=== PATIENT | female | born 1965 ===

== ENCOUNTER 2018-07-09 00:30 | Inpatient (IN) | payer BC, OTHER ==
[2018-07-09 00:43] VITALS: RESP 20
[2018-07-09] MEDS ORDERED: Sodium Chloride 0.9% 1,000 ML IV ONE (00:45)
[2018-07-09 01:02] LABS: BASO # 0.1 K/uL (0.0-0.2); BASO % 0.7 % (0.0-2.0); EOS # 0.2 K/uL (0.0-0.7); EOS % 1.6 % (0.0-4.0); HEMOGLOBIN 12.8 g/dL (11.0-16.0); LYMPH # 5.1 K/uL (1.0-4.3); LYMPH % 47.7 % (20.0-40.0); MEAN CELL VOLUME 90.6 fL (81.0-99.0); MEAN CORPUSCULAR HEMOGLOBIN 30.5 pg (27.0-31.0); MEAN CORPUSCULAR HGB CONC 33.6 g/dL (33.0-37.0); MEAN PLATELET VOLUME 11.8 fL (7.2-11.7); MONO # 1.2 K/uL (0.0-0.8); MONO % 11.6 % (0.0-10.0); NEUT # 4.1 K/uL (1.8-7.0); NEUT % 38.4 % (50.0-75.0); NRBC % 0.1 % (0.0-2.0); RBC 4.2 Mil/uL (3.80-5.20); RED CELL DISTRIBUTION WIDTH 13.1 % (11.5-14.5); WHITE BLOOD COUNT 10.7 K/uL (4.8-10.8)
[2018-07-09 02:07] LABS: ALB/GLOB RATIO 1.4 (1.0-2.1); ALBUMIN 4.4 g/dL (3.5-5.0); ALT/SGPT 26 U/L (9-52); AST/SGOT 36 U/L (14-36); BLOOD UREA NITROGEN 15 mg/dL (7-17); GFR NON-AFRICAN AMERICAN > 60; LIPASE 149 U/L (23-300)
[2018-07-09 02:17] LABS: INR 1.1
[2018-07-09] MEDS ORDERED: Enoxaparin 40 mg Syringe SC STA (02:19)
--- NOTE | 2018-07-09 02:24 | C.PDOC ---
History Of Present Illness Patient presents to ED c/o dizziness described as room spinning around her since yesterday night, associated with nausea and vomiting. She states symptoms began after drinking a Monster energy drink. Patient denies chest pain, SOB, palpitations, abdominal pain, fever, cough, visual changes, facial droop, slurred speech, extremity weakness, sensory changes. Time Seen by Provider: 07/09/18 00:38 Chief Complaint (Nursing): GI Problem History Per: Patient History/Exam Limitations: no limitations Onset/Duration Of Symptoms: Days (2) Current Symptoms Are (Timing): Still Present Severity: Moderate Past Medical History Reviewed: Historical Data, Nursing Documentation, Vital Signs Vital Signs: Last Vital Signs Temp 97.9 F 07/09/18 00:37 Pulse 115 H 07/09/18 00:37 Resp 20 07/09/18 00:37 BP 166/91 H 07/09/18 00:37 Pulse Ox 98 07/09/18 00:37 - Medical History PMH: GERD Family History: States: No Known Family Hx - Social History Hx Tobacco Use: No Hx Alcohol Use: No Hx Substance Use: No - Immunization History Hx Tetanus Toxoid Vaccination: No Hx Influenza Vaccination: No Hx Pneumococcal Vaccination: No Review Of Systems Constitutional: Negative for: Fever, Chills Cardiovascular: Negative for: Chest Pain, Palpitations Respiratory: Negative for: Cough, Shortness of Breath Gastrointestinal: Positive for: Nausea, Vomiting. Negative for: Abdominal Pain Neurological: Positive for: Dizziness. Negative for: Weakness, Numbness, Headache Physical Exam - Physical Exam Appears: Well, Non-toxic, In Acute Distress (uncomfortable appearing, (+) vomiting) Head: Normacephalic Eye(s): bilateral: PERRL, EOMI, Other (mild horizontal nystagmus) Oral Mucosa: Moist Cardiovascular: Rhythm Irregular (irregularly irregular, tachycardic) Respiratory: Normal Breath Sounds, No Rales, No Rhonchi, No Wheezing Gastrointestinal/Abdominal: Normal Exam, Bowel Sounds, Soft, No Tenderness Extremity: Normal ROM, No Pedal Edema, No Calf Tenderness Neurological/Psych: Oriented x3, Normal Speech, Normal Cognition, Normal Cranial Nerves, No Cerebellar Signs, Normal Motor, Normal Sensation ED Course And Treatment - Laboratory Results Result Diagrams: 07/09/18 00:50 07/09/18 01:53 Lab Results: PT 12.0 SECONDS (9.7-12.2) 07/09/18 02:04 INR 1.1 07/09/18 02:04 APTT 33 SECONDS (21-34) 07/09/18 02:04 Troponin I < 0.0120 ng/mL (0.00-0.120) 07/09/18 01:30 Total Bilirubin 0.3 mg/dL (0.2-1.3) 07/09/18 01:53 AST 36 U/L (14-36) 07/09/18 01:53 ALT 26 U/L (9-52) 07/09/18 01:53 Alkaline Phosphatase 104 U/L (38-126) 07/09/18 01:53 Total Protein 7.5 g/dL (6.3-8.3) 07/09/18 01:53 Albumin 4.4 g/dL (3.5-5.0) 07/09/18 01:53 Globulin 3.1 gm/dL (2.2-3.9) 07/09/18 01:53 Albumin/Globulin Ratio 1.4 (1.0-2.1) 07/09/18 01:53 Lipase 149 U/L (23-300) 07/09/18 01:53 ECG: Interpreted By Me, Viewed By Me (atrial fibrillation 80 bpm, left axis deviation, no acute ST changes) ECG Interpretation: Abnormal O2 Sat by Pulse Oximetry: 98 (RA) Pulse Ox Interpretation: Normal Progress Note: Blood work, EKG, UA, UDS ordered and reviewed. Patient given IV Ns bolus, IV zofran and PO Meclizine. EKG shows new onset atrial fibrillation - SC Lovenox given. Disposition - Disposition Forms: [employer] (Maltese)
[2018-07-09] MEDS ORDERED: Enoxaparin 80 mg Syringe ONE (02:25)
[2018-07-09] MEDS ORDERED: Potassium Chloride 20 mEq ER Tab PO STA (02:39)
[2018-07-09] MEDS ORDERED: Potassium Chloride 20 mEq ER Tab PO ONE (02:55)
--- NOTE | 2018-07-09 03:03 | CP.PCM.HP ---
<LornaSang - Last Filed: 07/09/18 04:51> History of Present Illness - History of Present Illness History of Present Illness: PGY-1 History and Physical [address] Mcneil Patient is a 52 year old female with past medical history of GERD presenting to ED with dizziness since yesterday evening with associated nausea/vomiting. Patient describes dizziness as sensation of room spinning around her. She states the symptoms began after drinking one Monster energy drink. No fevers/chills, headaches, chest pain, palpitations, sob, cough, abdominal pain, diarrhea/constipation, dysuria, or changes in stool. PMHx: GERD PSHx: ovarian cyst removal Allergies: NKDA Home Medications: None Social Hx: denies alcohol, tobacco, illicit drug use Family Hx: unknown PMD: None Present on Admission - Present on Admission Any Indicators Present on Admission: No Review of Systems - Review of Systems All systems: reviewed and no additional remarkable complaints except Review of Systems: as per HPI Past Patient History - Infectious Disease Hx of Infectious Diseases: None - Past Social History Smoking Status: Never Smoked - GASTROINTESTINAL Hx Gastroesophageal Reflux: Yes - PSYCHIATRIC Hx Substance Use: No - SURGICAL HISTORY Hx Surgeries: Yes Other/Comment: OVARIAN CYST REMOVAL - ANESTHESIA Hx Anesthesia: Yes Meds Allergies/Adverse Reactions: Allergies Allergy/AdvReac Type Severity Reaction Status Date / Time DUST Allergy Mild Uncoded 07/09/18 00:43 POLLEN Allergy Mild Uncoded 07/09/18 00:43 Physical Exam - Constitutional Appears: Non-toxic, In Acute Distress - Head Exam Head Exam: ATRAUMATIC, NORMAL INSPECTION, NORMOCEPHALIC - Eye Exam Eye Exam: EOMI, Normal appearance, PERRL Pupil Exam: NORMAL ACCOMODATION - ENT Exam ENT Exam: Mucous Membranes Dry, Normal Exam - Neck Exam Neck exam: Positive for: Full Rom, Normal Inspection. Negative for: Tenderness - Respiratory Exam Respiratory Exam: Clear to Auscultation Bilateral, NORMAL BREATHING PATTERN. absent: Accessory Muscle Use, Rales, Rhonchi, Wheezes, Respiratory Distress, Stridor - Cardiovascular Exam Cardiovascular Exam: Tachycardia, Irregular Rhythm, +S1, +S2 - GI/Abdominal Exam GI & Abdominal Exam: Normal Bowel Sounds, Soft. absent: Distended, Firm, G uarding, Rebound, Rigid, Tenderness - Extremities Exam Extremities exam: Positive for: normal capillary refill, normal inspection, pedal pulses present. Negative for: calf tenderness, pedal edema - Back Exam Back exam: NORMAL INSPECTION. absent: CVA tenderness (L), CVA tenderness (R) - Neurological Exam Neurological exam: Alert, CN II-XII Intact, Oriented x3 - Skin Skin Exam: Dry, Intact, Normal Color, Warm Results - Vital Signs Recent Vital Signs: Last Vital Signs Temp 97.9 F 07/09/18 00:37 Pulse 115 H 07/09/18 00:37 Resp 20 07/09/18 00:37 BP 166/91 H 07/09/18 00:37 Pulse Ox 98 07/09/18 02:27 - Labs Result Diagrams: 07/09/18 00:50 07/09/18 01:53 Labs: Laboratory Results - last 24 hr 07/09/18 07/09/18 07/09/18 00:50 00:54 01:30 WBC 10.7 D RBC 4.20 Hgb 12.8 Hct 38.0 MCV 90.6 MCH 30.5 MCHC 33.6 RDW 13.1 Plt Count 162 MPV 11.8 H Neut % (Auto) 38.4 L Lymph % (Auto) 47.7 H [place] % (Auto) 11.6 H Eos % (Auto) 1.6 Baso % (Auto) 0.7 Neut # (Auto) 4.1 Lymph # (Auto) 5.1 H [place] # (Auto) 1.2 H Eos # (Auto) 0.2 Baso # (Auto) 0.1 PT INR APTT Sodium Potassium Chloride Carbon Dioxide Anion Gap BUN Creatinine Est GFR ( Amer) Est GFR (Non-Af Amer) POC Glucose (mg/dL) 129 H Random Glucose Calcium Total Bilirubin AST ALT Alkaline Phosphatase Troponin I < 0.0120 Total Protein Albumin Globulin Albumin/Globulin Ratio Lipase Alcohol, Quantitative < 10 07/09/18 07/09/18 01:53 02:04 WBC RBC Hgb Hct MCV MCH MCHC RDW Plt Count MPV Neut % (Auto) Lymph % (Auto) [place] % (Auto) Eos % (Auto) Baso % (Auto) Neut # (Auto) Lymph # (Auto) [place] # (Auto) Eos # (Auto) Baso # (Auto) PT 12.0 INR 1.1 APTT 33 Sodium 138 Potassium 3.3 L Chloride 102 Carbon Dioxide 30 Anion Gap 9 L BUN 15 Creatinine 0.6 L Est GFR ( Amer) > 60 Est GFR (Non-Af Amer) > 60 POC Glucose (mg/dL) Random Glucose 129 H D Calcium 9.0 Total Bilirubin 0.3 AST 36 ALT 26 Alkaline Phosphatase 104 Troponin I Total Protein 7.5 Albumin 4.4 Globulin 3.1 Albumin/Globulin Ratio 1.4 Lipase 149 Alcohol, Quantitative Assessment & Plan - Assessment and Plan (Free Text) Assessment: 52 year old female with pmhx of GERD presenting to ED with acute onset dizziness with associated nausea/vomiting since yesterday evening. EKG findings suggest new onset atrial fibrillation. Plan: New onset atrial fibrillation -UDS, alcohol serum negative -s/p lovenox 60 mg SC in ED -CXR: no acute findings; f/u official read -EKG 1: atrial fibrillation @ 95 bpm -EKG 2: atrial fibrillation @ 80 bpm -EKG 3: NSR @ 87 bpm -telemetry monitoring -ECHO in am -CHADS-VASc score: 1 -ASA 81 mg PO daily -conservative monitoring Dizziness, likely 2/2 benign positional vertigo -s/p NS bolus x1, zofran x1, meclizine x1 in ED -zofran 4 mg PO q4 prn for nausea -meclizine 12.5 mg PO BID prn for dizziness Hypokalemia -K 3.3 on admission -likely 2/2 vomiting -Kdur 20 mEq given in ED -continue to monitor, replete as necessary GERD -protonix 40 mg IVP daily -Maalox 30 ml PO q6 prn PPx, Diet, Disposition -DVT ppx: scds -GI ppx: protonix -Diet: HHD Case discussed with Dr. Ewa Rothman DO, PGY-1 <Yamil Mcneil P - Last Filed: 07/09/18 08:14> Results - Vital Signs Recent Vital Signs: Last Vital Signs Temp 98.4 F 07/09/18 07:20 Pulse 94 H 07/09/18 07:20 Resp 20 07/09/18 07:20 BP 126/78 07/09/18 07:20 Pulse Ox 98 07/09/18 07:20 - Labs Result Diagrams: 07/09/18 00:50 07/09/18 01:53 Labs: Laboratory Results - last 24 hr 07/09/18 07/09/18 07/09/18 00:50 00:54 01:30 WBC 10.7 D RBC 4.20 Hgb 12.8 Hct 38.0 MCV 90.6 MCH 30.5 MCHC 33.6 RDW 13.1 Plt Count 162 MPV 11.8 H Neut % (Auto) 38.4 L Lymph % (Auto) 47.7 H [place] % (Auto) 11.6 H Eos % (Auto) 1.6 Baso % (Auto) 0.7 Neut # (Auto) 4.1 Lymph # (Auto) 5.1 H [place] # (Auto) 1.2 H Eos # (Auto) 0.2 Baso # (Auto) 0.1 PT INR APTT Sodium Potassium Chloride Carbon Dioxide Anion Gap BUN Creatinine Est GFR ( Amer) Est GFR (Non-Af Amer) POC Glucose (mg/dL) 129 H Random Glucose Calcium Total Bilirubin AST ALT Alkaline Phosphatase Troponin I < 0.0120 Total Protein Albumin Globulin Albumin/Globulin Ratio Lipase Urine Color Urine Clarity Urine pH Ur Specific [place] Urine Protein Urine Glucose (UA) Urine Ketones Urine Blood Urine Nitrate Urine Bilirubin Urine Urobilinogen Ur Leukocyte Esterase Urine WBC (Auto) Urine Bacteria Urine HCG, Qual Urine Opiates Screen Urine Methadone Screen Ur Barbiturates Screen Ur Phencyclidine Scrn Ur Amphetamines Screen U Benzodiazepines Scrn U Oth Cocaine Metabols U Cannabinoids Screen Alcohol, Quantitative < 10 07/09/18 07/09/18 07/09/18 01:53 02:04 03:04 WBC RBC Hgb Hct MCV MCH MCHC RDW Plt Count MPV Neut % (Auto) Lymph % (Auto) [place] % (Auto) Eos % (Auto) Baso % (Auto) Neut # (Auto) Lymph # (Auto) [place] # (Auto) Eos # (Auto) Baso # (Auto) PT 12.0 INR 1.1 APTT 33 Sodium 138 Potassium 3.3 L Chloride 102 Carbon Dioxide 30 Anion Gap 9 L BUN 15 Creatinine 0.6 L Est GFR ( Amer) > 60 Est GFR (Non-Af Amer) > 60 POC Glucose (mg/dL) Random Glucose 129 H D Calcium 9.0 Total Bilirubin 0.3 AST 36 ALT 26 Alkaline Phosphatase 104 Troponin I Total Protein 7.5 Albumin 4.4 Globulin 3.1 Albumin/Globulin Ratio 1.4 Lipase 149 Urine Color Colorless Urine Clarity Clear Urine pH 8.0 Ur Specific [place] 1.006 Urine Protein Negative Urine Glucose (UA) Normal Urine Ketones Negative Urine Blood Negative Urine Nitrate Negative Urine Bilirubin Negative Urine Urobilinogen Normal Ur Leukocyte Esterase Neg Urine WBC (Auto) 1 Urine Bacteria Rare Urine HCG, Qual Urine Opiates Screen Urine Methadone Screen Ur Barbiturates Screen Ur Phencyclidine Scrn Ur Amphetamines Screen U Benzodiazepines Scrn U Oth Cocaine Metabols U Cannabinoids Screen Alcohol, Quantitative 07/09/18 07/09/18 03:04 03:04 WBC RBC Hgb Hct MCV MCH MCHC RDW Plt Count MPV Neut % (Auto) Lymph % (Auto) [place] % (Auto) Eos % (Auto) Baso % (Auto) Neut # (Auto) Lymph # (Auto) [place] # (Auto) Eos # (Auto) Baso # (Auto) PT INR APTT Sodium Potassium Chloride Carbon Dioxide Anion Gap BUN Creatinine Est GFR ( Amer) Est GFR (Non-Af Amer) POC Glucose (mg/dL) Random Glucose Calcium Total Bilirubin AST ALT Alkaline Phosphatase Troponin I Total Protein Albumin Globulin Albumin/Globulin Ratio Lipase Urine Color Urine Clarity Urine pH Ur Specific [place] Urine Protein Urine Glucose (UA) Urine Ketones Urine Blood Urine Nitrate Urine Bilirubin Urine Urobilinogen Ur Leukocyte Esterase Urine WBC (Auto) Urine Bacteria Urine HCG, Qual Negative Urine Opiates Screen Negative Urine Methadone Screen Negative Ur Barbiturates Screen Negative Ur Phencyclidine Scrn Negative Ur Amphetamines Screen Negative U Benzodiazepines Scrn Negative U Oth Cocaine Metabols Negative U Cannabinoids Screen Negative Alcohol, Quantitative Attending/Attestation - Attestation I have personally seen and examined this patient.: Yes I have fully participated in the care of the patient.: Yes I have reviewed all pertinent clinical information: Yes Notes (Text): 07/09/18 08:08 Assessment Vertigo clinically BPV, no other neuro deficit on clinical exam New observed afib converted to sinus ? PAF as patient gives prior history of palpitations with energy drinks Plan PRN meclinizine, zofran, counselled about bpv Echo, likely would be candidate for ASA Counselled and to cautious about caffeine and energy drinks Gi/dvt prophylaxis See orders for detail.
[2018-07-09 03:17] LABS: URINE BACTERIA RARE (<OCC); URINE BILIRUBIN NEGATIVE (NEGATIVE); URINE BLOOD NEGATIVE (NEGATIVE); URINE CLARITY Clear (Clear); URINE COLOR Colorless (YELLOW); URINE GLUCOSE (UA) NORMAL (Normal); URINE LEUKOCYTE ESTERASE NEG Leu/uL (Negative); URINE PROTEIN NEGATIVE (NEGATIVE); URINE UROBILINOGEN NORMAL mg/dL (0.2-1.0)
[2018-07-09 03:26] LABS: BARBITURATES, UR NEGATIVE (NEGATIVE); BENZODIAZEPINES, UR NEGATIVE (NEGATIVE); OPIATES, UR NEGATIVE (NEGATIVE); PHENCYCLIDINE, UR NEGATIVE (NEGATIVE)
[2018-07-09] MEDS: Aluminum Hydroxide/Magnesium Hydroxide Susp (30 mL) PO PRN (05:07)
--- NOTE | 2018-07-09 09:32 | CP.PCM.CON ---
<Mercedez Hawkins - Last Filed: 07/09/18 18:51> History of Present Illness - History of Present Illness History of Present Illness: Cardiology Consult Note for Dr. Patel: 52 year old female with past medical history of GERD presented to the ER for dizziness. Cardiology has been consulted for new onset atrial fibrillation. Patient states she has been having palpitations for the past 2 years off and on. She states they occur every time she has an energy drink (for which she had a Monster energy drink yesterday). The palpitations will last for about 1-2 hours and she usually does not pay attention to them. She states what prompted to come to the ER overnight was that she could barely standup she felt extremely dizzy. She states the room felt like it was spinning. She also complains of nausea when she has dizziness. She denies chest pain, shortness of breath, fever, chills, diarrhea or constipation. PMD: Dr. 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 absent: Chest Pain, Dyspnea, Leg Edema - Respiratory Respiratory: absent: Cough, Dyspnea - Gastrointestinal Gastrointestinal: Nausea. absent: Vomiting - Genitourinary Genitourinary: absent: Dysuria - Neurological Neurological: Dizziness Past Patient History - Infectious Disease Hx of Infectious Diseases: None - Past Medical History & Family History Past Medical History?: Yes - Past Social History Smoking Status: Never Smoked - MUSCULOSKELETAL/RHEUMATOLOGICAL Hx Falls: No - GASTROINTESTINAL Hx Gastroesophageal Reflux: Yes - PSYCHIATRIC Hx Substance Use: No - SURGICAL HISTORY Hx Surgeries: Yes Other/Comment: OVARIAN CYST REMOVAL - ANESTHESIA Hx Anesthesia: Yes Hx Anesthesia Reactions: No Hx Malignant Hyperthermia: No Has any member of the family had a problem w/ anesthesia?: No Meds Allergies/Adverse Reactions: Allergies Allergy/AdvReac Type Severity Reaction Status Date / Time DUST Allergy Mild Uncoded 07/09/18 00:43 POLLEN Allergy Mild Uncoded 07/09/18 00:43 - Medications Medications: Current Medications Al Hydrox/Mg Hydrox/Simethicone (Maalox 30 Ml) 30 ml PO Q6 PRN PRN Reason: Indigestion / Heartburn Last Admin: 07/09/18 05:07 Dose: 30 ml Aspirin (Aspirin Chewable) 81 mg PO DAILY [facility] Influenza Virus Vaccine (Flucelvax Quad [id number] Syr) 60 mcg IM .ONCE ONE Stop: 07/11/18 10:01 Meclizine HCl (Antivert) 12.5 mg PO BID PRN PRN Reason: Dizziness Ondansetron HCl (Zofran Inj) 4 mg IVP Q6 PRN PRN Reason: nausea Pantoprazole Sodium (Protonix Inj) 40 mg IVP DAILY [facility] Pneumococcal Polyvalent Vaccine (Pneumovax 23 Vaccine) 0.5 ml IM .ONCE ONE Stop: 07/11/18 10:01 Physical Exam - Constitutional Appears: No Acute Distress - Head Exam Head Exam: ATRAUMATIC, NORMAL INSPECTION - Eye Exam Eye Exam: EOMI, Normal appearance - ENT Exam ENT Exam: Mucous Membranes Moist - Respiratory Exam Respiratory Exam: Clear to Auscultation Bilateral, NORMAL BREATHING PATTERN - Cardiovascular Exam Cardiovascular Exam: REGULAR RHYTHM, +S1, +S2 - GI/Abdominal Exam GI & Abdominal Exam: Normal Bowel Sounds, Soft. absent: Tenderness - Extremities Exam Extremities exam: Positive for: normal inspection - Neurological Exam Neurological exam: Alert, Oriented x3 - Psychiatric Exam Psychiatric exam: Depressed - Skin Skin Exam: Normal Color Results - Vital Signs Recent Vital Signs: Last Vital Signs Temp 98.4 F 07/09/18 07:20 Pulse 94 H 07/09/18 07:20 Resp 20 07/09/18 07:20 BP 126/78 07/09/18 07:20 Pulse Ox 98 07/09/18 07:20 - Labs Result Diagrams: 07/09/18 00:50 07/09/18 01:53 Labs: Laboratory Results - last 24 hr 07/09/18 07/09/18 07/09/18 00:50 00:54 01:30 WBC 10.7 D RBC 4.20 Hgb 12.8 Hct 38.0 MCV 90.6 MCH 30.5 MCHC 33.6 RDW 13.1 Plt Count 162 MPV 11.8 H Neut % (Auto) 38.4 L Lymph % (Auto) 47.7 H [place] % (Auto) 11.6 H Eos % (Auto) 1.6 Baso % (Auto) 0.7 Neut # (Auto) 4.1 Lymph # (Auto) 5.1 H [place] # (Auto) 1.2 H Eos # (Auto) 0.2 Baso # (Auto) 0.1 PT INR APTT Sodium Potassium Chloride Carbon Dioxide Anion Gap BUN Creatinine Est GFR ( Amer) Est GFR (Non-Af Amer) POC Glucose (mg/dL) 129 H Random Glucose Calcium Total Bilirubin AST ALT Alkaline Phosphatase Troponin I < 0.0120 Total Protein Albumin Globulin Albumin/Globulin Ratio Lipase Urine Color Urine Clarity Urine pH Ur Specific [place] Urine Protein Urine Glucose (UA) Urine Ketones Urine Blood Urine Nitrate Urine Bilirubin Urine Urobilinogen Ur Leukocyte Esterase Urine WBC (Auto) Urine Bacteria Urine HCG, Qual Urine Opiates Screen Urine Methadone Screen Ur Barbiturates Screen Ur Phencyclidine Scrn Ur Amphetamines Screen U Benzodiazepines Scrn U Oth Cocaine Metabols U Cannabinoids Screen Alcohol, Quantitative < 10 07/09/18 07/09/18 07/09/18 01:53 02:04 03:04 WBC RBC Hgb Hct MCV MCH MCHC RDW Plt Count MPV Neut % (Auto) Lymph % (Auto) [place] % (Auto) Eos % (Auto) Baso % (Auto) Neut # (Auto) Lymph # (Auto) [place] # (Auto) Eos # (Auto) Baso # (Auto) PT 12.0 INR 1.1 APTT 33 Sodium 138 Potassium 3.3 L Chloride 102 Carbon Dioxide 30 Anion Gap 9 L BUN 15 Creatinine 0.6 L Est GFR ( Amer) > 60 Est GFR (Non-Af Amer) > 60 POC Glucose (mg/dL) Random Glucose 129 H D Calcium 9.0 Total Bilirubin 0.3 AST 36 ALT 26 Alkaline Phosphatase 104 Troponin I Total Protein 7.5 Albumin 4.4 Globulin 3.1 Albumin/Globulin Ratio 1.4 Lipase 149 Urine Color Colorless Urine Clarity Clear Urine pH 8.0 Ur Specific [place] 1.006 Urine Protein Negative Urine Glucose (UA) Normal Urine Ketones Negative Urine Blood Negative Urine Nitrate Negative Urine Bilirubin Negative Urine Urobilinogen Normal Ur Leukocyte Esterase Neg Urine WBC (Auto) 1 Urine Bacteria Rare Urine HCG, Qual Urine Opiates Screen Urine Methadone Screen Ur Barbiturates Screen Ur Phencyclidine Scrn Ur Amphetamines Screen U Benzodiazepines Scrn U Oth Cocaine Metabols U Cannabinoids Screen Alcohol, Quantitative 07/09/18 07/09/18 03:04 03:04 WBC RBC Hgb Hct MCV MCH MCHC RDW Plt Count MPV Neut % (Auto) Lymph % (Auto) [place] % (Auto) Eos % (Auto) Baso % (Auto) Neut # (Auto) Lymph # (Auto) [place] # (Auto) Eos # (Auto) Baso # (Auto) PT INR APTT Sodium Potassium Chloride Carbon Dioxide Anion Gap BUN Creatinine Est GFR ( Amer) Est GFR (Non-Af Amer) POC Glucose (mg/dL) Random Glucose Calcium Total Bilirubin AST ALT Alkaline Phosphatase Troponin I Total Protein Albumin Globulin Albumin/Globulin Ratio Lipase Urine Color Urine Clarity Urine pH Ur Specific [place] Urine Protein Urine Glucose (UA) Urine Ketones Urine Blood Urine Nitrate Urine Bilirubin Urine Urobilinogen Ur Leukocyte Esterase Urine WBC (Auto) Urine Bacteria Urine HCG, Qual Negative Urine Opiates Screen Negative Urine Methadone Screen Negative Ur Barbiturates Screen Negative Ur Phencyclidine Scrn Negative Ur Amphetamines Screen Negative U Benzodiazepines Scrn Negative U Oth Cocaine Metabols Negative U Cannabinoids Screen Negative Alcohol, Quantitative Assessment & Plan - Assessment and Plan (Free Text) Assessment: 52 year old female with past medical history of GERD presented to the ER for dizziness. New onset atrial fibrillation - resolved possibly secondary to consumption of energy drinks CHADS-VASc score: 1 - UDS and Alcohol: Negative - EKG: afib; (previous EKG 12/12/15 showed NSR); Second EKG: NSR - f/u ECHO - f/u TSH and free T4 Case discussed with Dr. Jorge Hawkins PGY-2 <Herman Patel - Last Filed: 07/09/18 22:35> Meds - Medications Medications: Current Medications Al Hydrox/Mg Hydrox/Simethicone (Maalox 30 Ml) 30 ml PO Q6 PRN PRN Reason: Indigestion / Heartburn Last Admin: 07/09/18 05:07 Dose: 30 ml Aspirin (Aspirin Chewable) 81 mg PO DAILY [facility] Last Admin: 07/09/18 11:40 Dose: 81 mg Influenza Virus Vaccine (Flucelvax Quad [id number] Syr) 60 mcg IM .ONCE ONE Stop: 07/11/18 10:01 Meclizine HCl (Antivert) 12.5 mg PO BID PRN PRN Reason: Dizziness Ondansetron HCl (Zofran Inj) 4 mg IVP Q6 PRN PRN Reason: nausea Pantoprazole Sodium (Protonix Inj) 40 mg IVP DAILY [facility] Last Admin: 07/09/18 11:41 Dose: 40 mg Pneumococcal Polyvalent Vaccine (Pneumovax 23 Vaccine) 0.5 ml IM .ONCE ONE Stop: 07/11/18 10:01 Results - Vital Signs Recent Vital Signs: Last Vital Signs Temp 99.5 F 07/09/18 15:00 Pulse 101 H 07/09/18 15:00 Resp 20 07/09/18 15:00 BP 114/67 07/09/18 15:00 Pulse Ox 98 07/09/18 15:00 - Labs Result Diagrams: 07/09/18 00:50 07/09/18 01:53 Labs: Laboratory Results - last 24 hr 07/09/18 07/09/18 07/09/18 00:50 00:54 01:30 WBC 10.7 D RBC 4.20 Hgb 12.8 Hct 38.0 MCV 90.6 MCH 30.5 MCHC 33.6 RDW 13.1 Plt Count 162 MPV 11.8 H Neut % (Auto) 38.4 L Lymph % (Auto) 47.7 H [place] % (Auto) 11.6 H Eos % (Auto) 1.6 Baso % (Auto) 0.7 Neut # (Auto) 4.1 Lymph # (Auto) 5.1 H [place] # (Auto) 1.2 H Eos # (Auto) 0.2 Baso # (Auto) 0.1 PT INR APTT Sodium Potassium Chloride Carbon Dioxide Anion Gap BUN Creatinine Est GFR ( Amer) Est GFR (Non-Af Amer) POC Glucose (mg/dL) 129 H Random Glucose Calcium Total Bilirubin AST ALT Alkaline Phosphatase Troponin I < 0.0120 Total Protein Albumin Globulin Albumin/Globulin Ratio Lipase Urine Color Urine Clarity Urine pH Ur Specific [place] Urine Protein Urine Glucose (UA) Urine Ketones Urine Blood Urine Nitrate Urine Bilirubin Urine Urobilinogen Ur Leukocyte Esterase Urine WBC (Auto) Urine Bacteria Urine HCG, Qual Urine Opiates Screen Urine Methadone Screen Ur Barbiturates Screen Ur Phencyclidine Scrn Ur Amphetamines Screen U Benzodiazepines Scrn U Oth Cocaine Metabols U Cannabinoids Screen Alcohol, Quantitative < 10 07/09/18 07/09/18 07/09/18 01:53 02:04 03:04 WBC RBC Hgb Hct MCV MCH MCHC RDW Plt Count MPV Neut % (Auto) Lymph % (Auto) [place] % (Auto) Eos % (Auto) Baso % (Auto) Neut # (Auto) Lymph # (Auto) [place] # (Auto) Eos # (Auto) Baso # (Auto) PT 12.0 INR 1.1 APTT 33 Sodium 138 Potassium 3.3 L Chloride 102 Carbon Dioxide 30 Anion Gap 9 L BUN 15 Creatinine 0.6 L Est GFR ( Amer) > 60 Est GFR (Non-Af Amer) > 60 POC Glucose (mg/dL) Random Glucose 129 H D Calcium 9.0 Total Bilirubin 0.3 AST 36 ALT 26 Alkaline Phosphatase 104 Troponin I Total Protein 7.5 Albumin 4.4 Globulin 3.1 Albumin/Globulin Ratio 1.4 Lipase 149 Urine Color Colorless Urine Clarity Clear Urine pH 8.0 Ur Specific [place] 1.006 Urine Protein Negative Urine Glucose (UA) Normal Urine Ketones Negative Urine Blood Negative Urine Nitrate Negative Urine Bilirubin Negative Urine Urobilinogen Normal Ur Leukocyte Esterase Neg Urine WBC (Auto) 1 Urine Bacteria Rare Urine HCG, Qual Urine Opiates Screen Urine Methadone Screen Ur Barbiturates Screen Ur Phencyclidine Scrn Ur Amphetamines Screen U Benzodiazepines Scrn U Oth Cocaine Metabols U Cannabinoids Screen Alcohol, Quantitative 07/09/18 07/09/18 03:04 03:04 WBC RBC Hgb Hct MCV MCH MCHC RDW Plt Count MPV Neut % (Auto) Lymph % (Auto) [place] % (Auto) Eos % (Auto) Baso % (Auto) Neut # (Auto) Lymph # (Auto) [place] # (Auto) Eos # (Auto) Baso # (Auto) PT INR APTT Sodium Potassium Chloride Carbon Dioxide Anion Gap BUN Creatinine Est GFR ( Amer) Est GFR (Non-Af Amer) POC Glucose (mg/dL) Random Glucose Calcium Total Bilirubin AST ALT Alkaline Phosphatase Troponin I Total Protein Albumin Globulin Albumin/Globulin Ratio Lipase Urine Color Urine Clarity Urine pH Ur Specific [place] Urine Protein Urine Glucose (UA) Urine Ketones Urine Blood Urine Nitrate Urine Bilirubin Urine Urobilinogen Ur Leukocyte Esterase Urine WBC (Auto) Urine Bacteria Urine HCG, Qual Negative Urine Opiates Screen Negative Urine Methadone Screen Negative Ur Barbiturates Screen Negative Ur Phencyclidine Scrn Negative Ur Amphetamines Screen Negative U Benzodiazepines Scrn Negative U Oth Cocaine Metabols Negative U Cannabinoids Screen Negative Alcohol, Quantitative Assessment & Plan - Assessment and Plan (Free Text) Assessment: Patient seen and evaluated personally by me. A Fib most likely due to energy drinks. No further cardiac work up needed at this time ASA 81 po daily. F/U with medical clinic. Will sign off. Please reconsult if needed Thank you
[2018-07-09] MEDS ORDERED: diltiaZEM 180 mg/24 Hours CD Cap PO SCH (10:00)
--- NOTE | 2018-07-09 10:35 | RAD ---
HISTORY: admission COMPARISON: Chest x-ray performed 12/15/15 TECHNIQUE: Chest, one view. FINDINGS: LUNGS: Subsegmental atelectasis, left lung base. Right hilar prominence. PLEURA: No significant pleural effusion. No definite pneumothorax. CARDIOVASCULAR: Heart size appears within normal limits. Atherosclerotic calcifications present. OSSEOUS STRUCTURES: Degenerative changes. VISUALIZED UPPER ABDOMEN: Unremarkable. OTHER FINDINGS: None. IMPRESSION: Segmental atelectasis, left lung base. Right hilar prominence.
--- NOTE | 2018-07-09 11:40 | CARD ---
APPROVED REPORT Date of service: 07/09/2018 EKG Measurement Heart [id number] <Conclusion> Normal sinus rhythm Septal infarct, age undetermined Abnormal ECG
--- NOTE | 2018-07-09 15:27 | CP.PCM.PN ---
Subjective - Date & Time of Evaluation Date of Evaluation: 07/09/18 Time of Evaluation: 15:20 - Subjective Subjective: Progress Note for Dr. Antoine Carvajal Patient seen and examined at bedside this afternoon. Patient states she has no more vomiting. Last vomit was in the ED. She feels some dizziness/lightheadedness but of less intensity. Patient able to sit up and stand without assistance now. She feels better after eating. Patient denies chest pain, palp, nausea, vomiting, diarrhea, abdominal pain. Objective - Vital Signs/Intake and Output Vital Signs (last 24 hours): Temp Pulse Resp BP Pulse Ox 98.4 F 103 H 20 126/78 98 07/09/18 07:20 07/09/18 13:24 07/09/18 07:20 07/09/18 07:20 07/09/18 07:20 Intake and Output: 07/09/18 07/09/18 06:59 18:59 Intake Total 200 Balance 200 - Medications Medications: Current Medications Al Hydrox/Mg Hydrox/Simethicone (Maalox 30 Ml) 30 ml PO Q6 PRN PRN Reason: Indigestion / Heartburn Last Admin: 07/09/18 05:07 Dose: 30 ml Aspirin (Aspirin Chewable) 81 mg PO DAILY [facility] Last Admin: 07/09/18 11:40 Dose: 81 mg Influenza Virus Vaccine (Flucelvax Quad [id number] Syr) 60 mcg IM .ONCE ONE Stop: 07/11/18 10:01 Meclizine HCl (Antivert) 12.5 mg PO BID PRN PRN Reason: Dizziness Ondansetron HCl (Zofran Inj) 4 mg IVP Q6 PRN PRN Reason: nausea Pantoprazole Sodium (Protonix Inj) 40 mg IVP DAILY [facility] Last Admin: 07/09/18 11:41 Dose: 40 mg Pneumococcal Polyvalent Vaccine (Pneumovax 23 Vaccine) 0.5 ml IM .ONCE ONE Stop: 07/11/18 10:01 - Labs Labs: 07/09/18 00:50 07/09/18 01:53 PT 12.0 SECONDS (9.7-12.2) 07/09/18 02:04 INR 1.1 07/09/18 02:04 APTT 33 SECONDS (21-34) 07/09/18 02:04 - Constitutional Appears: Well, Non-toxic - Head Exam Head Exam: ATRAUMATIC, NORMAL INSPECTION - Eye Exam Eye Exam: EOMI, Normal appearance - Neck Exam Neck Exam: Normal Inspection - Respiratory Exam Respiratory Exam: Clear to Ausculation Bilateral, NORMAL BREATHING PATTERN - Cardiovascular Exam Cardiovascular Exam: Tachycardia - GI/Abdominal Exam GI & Abdominal Exam: Soft, Normal Bowel Sounds - Extremities Exam Extremities Exam: Normal Inspection. absent: Calf Tenderness, Joint Swelling, Pedal Edema, Tenderness Additional comments: peripheral pulses strong - Neurological Exam Neurological Exam: Alert, Awake, Oriented x3 - Psychiatric Exam Psychiatric exam: Normal Affect, Normal Mood - Skin Skin Exam: Dry, Intact, Normal Color, Warm Assessment and Plan - Assessment and Plan (Free Text) Assessment: 52 year old w/ PMHx of GERD presenting to ED with acute onset dizziness with associated nausea/vomiting x 1 day. EKG findings suggest new onset atrial fibrillation. Afib -UDS, alcohol serum negative. Can be 2/2 caffeine use or stressors. s/p lovenox 60 mg SC in ED. First 2 EKGs on admission Afib but wnl rate 80-95 bpm. Third EKG patient converted back to NSR at 87 bpm. -Continue tele monitor -f/u ECHO results -CHADS-VASc score: 1 -ASA 81 mg PO daily -Dr. Patel cardiology following appreciate recs Dizziness -likely 2/2 benign positional vertigo, improved with IVF, zofran and meclizine in the ED -continue to monitor sx -ambulate as tolerated Hypokalemia -K 3.3 on admission, likely 2/2 vomiting -Kdur 20 mEq given -continue to monitor, replete as necessary. BMP qAM GERD -protonix 40 mg IVP daily -Maalox 30 ml PO q6 prn -DVT ppx: scds -GI ppx: protonix
[2018-07-10 08:05] LABS: BASO % 0.5 % (0.0-2.0); EOS # 0.1 K/uL (0.0-0.7); EOS % 1.8 % (0.0-4.0); HEMOGLOBIN 12.2 g/dL (11.0-16.0); LYMPH # 1.5 K/uL (1.0-4.3); LYMPH % 31.6 % (20.0-40.0); MEAN CELL VOLUME 91.8 fL (81.0-99.0); MEAN CORPUSCULAR HEMOGLOBIN 30.8 pg (27.0-31.0); MEAN CORPUSCULAR HGB CONC 33.6 g/dL (33.0-37.0); MEAN PLATELET VOLUME 11.7 fL (7.2-11.7); MONO # 0.5 K/uL (0.0-0.8); MONO % 10.3 % (0.0-10.0); NEUT # 2.7 K/uL (1.8-7.0); NEUT % 55.8 % (50.0-75.0); NRBC % 0.1 % (0.0-2.0); RBC 3.97 Mil/uL (3.80-5.20); RED CELL DISTRIBUTION WIDTH 12.7 % (11.5-14.5); WHITE BLOOD COUNT 4.9 K/uL (4.8-10.8)
[2018-07-10 08:25] LABS: ALB/GLOB RATIO 1.4 (1.0-2.1); ALBUMIN 4.1 g/dL (3.5-5.0); ALT/SGPT 25 U/L (9-52); AST/SGOT 33 U/L (14-36); BLOOD UREA NITROGEN 14 mg/dL (7-17); GFR NON-AFRICAN AMERICAN > 60
--- NOTE | 2018-07-10 15:19 | CP.PCM.PN ---
Subjective - Date & Time of Evaluation Date of Evaluation: 07/10/18 Time of Evaluation: 15:17 - Subjective Subjective: Medicine Progress Note Dr. Antoine Carvajal's Service Patient seen and examined at bedside. Patient states she was not feeling dizzy yesterday, but today this morning she was unable to sit up straight from her bed due to increased dizziness. Food helped her feel better. She also thinks she has vitamin B deficiency and wants more energy. Denies chest pain, SOB, cough, wheeze, palpitations. Patient is wondering about her ECHO results. Patient also complaining of rhinitis/URI symptoms that goes with an earache. She said her right ear is prone to infections and she feels that it is coming. She has not had recent treatment. Objective - Vital Signs/Intake and Output Vital Signs (last 24 hours): Temp Pulse Resp BP Pulse Ox 98.0 F 91 H 20 130/83 100 07/10/18 07:17 07/10/18 07:17 07/10/18 07:17 07/10/18 07:17 07/10/18 07:17 - Medications Medications: Current Medications Al Hydrox/Mg Hydrox/Simethicone (Maalox 30 Ml) 30 ml PO Q6 PRN PRN Reason: Indigestion / Heartburn Last Admin: 07/09/18 05:07 Dose: 30 ml Aspirin (Aspirin Chewable) 81 mg PO DAILY [facility] Last Admin: 07/10/18 10:29 Dose: 81 mg Heparin Sodium (Porcine) (Heparin) 5,000 units SC Q8 [facility] Last Admin: 07/10/18 14:50 Dose: 5,000 units Influenza Virus Vaccine (Flucelvax Quad [id number] Syr) 60 mcg IM .ONCE ONE Stop: 07/11/18 10:01 Meclizine HCl (Antivert) 12.5 mg PO BID PRN PRN Reason: Dizziness Last Admin: 07/10/18 08:09 Dose: 12.5 mg Ondansetron HCl (Zofran Inj) 4 mg IVP Q6 PRN PRN Reason: nausea Pantoprazole Sodium (Protonix Inj) 40 mg IVP DAILY [facility] Last Admin: 07/10/18 10:29 Dose: 40 mg Pneumococcal Polyvalent Vaccine (Pneumovax 23 Vaccine) 0.5 ml IM .ONCE ONE Stop: 01/24/19 10:01 - Labs Labs: 07/10/18 07:55 07/10/18 07:55 PT 12.0 SECONDS (9.7-12.2) 07/09/18 02:04 INR 1.1 07/09/18 02:04 APTT 33 SECONDS (21-34) 07/09/18 02:04 - Constitutional Appears: Well, Non-toxic - Head Exam Head Exam: ATRAUMATIC, NORMAL INSPECTION - Eye Exam Eye Exam: EOMI, Normal appearance - ENT Exam ENT Exam: Mucous Membranes Moist, Normal Exam, Normal Oropharynx (no posterior pharyngeal abnormalities), TM's Normal Bilaterally - Neck Exam Neck Exam: absent: Lymphadenopathy, Meningismus, Tenderness, Thyromegaly - Respiratory Exam Respiratory Exam: Clear to Ausculation Bilateral, NORMAL BREATHING PATTERN - Cardiovascular Exam Cardiovascular Exam: REGULAR RHYTHM - GI/Abdominal Exam GI & Abdominal Exam: Soft, Normal Bowel Sounds - Extremities Exam Extremities Exam: Normal Inspection. absent: Calf Tenderness - Neurological Exam Neurological Exam: Alert, Awake, Oriented x3 - Psychiatric Exam Psychiatric exam: Normal Affect, Normal Mood - Skin Skin Exam: Dry, Intact, Normal Color, Warm Assessment and Plan - Assessment and Plan (Free Text) Assessment: 52 year old w/ PMHx of GERD presenting to ED with acute onset dizziness with associated nausea/vomiting x 1 day. EKG findings suggested new onset atrial fibrillation. Afib -UDS, alcohol serum negative. Can be 2/2 caffeine use or stressors. s/p lovenox 60 mg SC in ED. First 2 EKGs on admission Afib but wnl rate 80-95 bpm. Third EKG patient converted back to NSR at 87 bpm. -Continue tele monitor -f/u ECHO results -CHADS-VASc score: 1 -ASA 81 mg PO daily -Dr. Patel cardiology following appreciate recs Dizziness -likely 2/2 benign positional vertigo, improved with IVF, zofran and meclizine in the ED -continue to monitor sx -ambulate as tolerated -outpatient f/u for dizziness sx recommended Hypokalemia - resolved -K 3.3 on admission, likely 2/2 vomiting -Kdur 20 mEq given -continue to monitor, replete as necessary. BMP qAM GERD -protonix 40 mg IVP daily -Maalox 30 ml PO q6 prn -DVT ppx: scds -GI ppx: protonix dispo: If ECHO results normal, will d/c with instructions for taking ASA and outpatient f/u for dizziness.
[2018-07-10 16:07] VITALS: BP 132/78; PULSE 98; TEMP 97.3; O2SAT 98
--- NOTE | 2018-07-10 16:13 | CP.PCM.DIS ---
Provider - Provider Date of Admission: 07/09/18 02:51 Attending physician: Yamil Mcneil MD Consults: 07/09/18 07:52 Cardiology Consult Routine Comment: Consulting Provider: Herman Patel Consulting Physician: Herman Patel Reason for Consult: New Onset AFib. Anticoagulation? Time Spent in preparation of Discharge (in minutes): 35 Diagnosis - Discharge Diagnosis (1) Afib Status: Resolved (2) Dizziness Status: Chronic Hospital Course - Lab Results Lab Results: Most Recent Lab Values WBC 4.9 K/uL (4.8-10.8) D 07/10/18 07:55 RBC 3.97 Mil/uL (3.80-5.20) 07/10/18 07:55 Hgb 12.2 g/dL (11.0-16.0) 07/10/18 07:55 Hct 36.4 % (34.0-47.0) 07/10/18 07:55 MCV 91.8 fL (81.0-99.0) 07/10/18 07:55 MCH 30.8 pg (27.0-31.0) 07/10/18 07:55 MCHC 33.6 g/dL (33.0-37.0) 07/10/18 07:55 RDW 12.7 % (11.5-14.5) 07/10/18 07:55 Plt Count 140 K/uL (130-400) 07/10/18 07:55 MPV 11.7 fL (7.2-11.7) 07/10/18 07:55 Neut % (Auto) 55.8 % (50.0-75.0) 07/10/18 07:55 Lymph % (Auto) 31.6 % (20.0-40.0) 07/10/18 07:55 [place] % (Auto) 10.3 % (0.0-10.0) H 07/10/18 07:55 Eos % (Auto) 1.8 % (0.0-4.0) 07/10/18 07:55 Baso % (Auto) 0.5 % (0.0-2.0) 07/10/18 07:55 Neut # (Auto) 2.7 K/uL (1.8-7.0) 07/10/18 07:55 Lymph # (Auto) 1.5 K/uL (1.0-4.3) 07/10/18 07:55 [place]kin # (Auto) 0.5 K/uL (0.0-0.8) 07/10/18 07:55 Eos # (Auto) 0.1 K/uL (0.0-0.7) 07/10/18 07:55 Baso # (Auto) 0.0 K/uL (0.0-0.2) 07/10/18 07:55 PT 12.0 SECONDS (9.7-12.2) 07/09/18 02:04 INR 1.1 07/09/18 02:04 APTT 33 SECONDS (21-34) 07/09/18 02:04 Sodium 139 mmol/L (132-148) 07/10/18 07:55 Potassium 4.5 mmol/L (3.6-5.2) 07/10/18 07:55 Chloride 106 mmol/L (98-107) 07/10/18 07:55 Carbon Dioxide 30 mmol/L (22-30) 07/10/18 07:55 Anion Gap 8 (10-20) L 07/10/18 07:55 BUN 14 mg/dL (7-17) 07/10/18 07:55 Creatinine 0.7 mg/dL (0.7-1.2) 07/10/18 07:55 Est GFR ( Amer) > 60 07/10/18 07:55 Est GFR (Non-Af Amer) > 60 07/10/18 07:55 POC Glucose (mg/dL) 129 mg/dL (65-110) H 07/09/18 00:54 Random Glucose 86 mg/dL (65-105) D 07/10/18 07:55 Calcium 9.0 mg/dl (8.6-10.4) 07/10/18 07:55 Phosphorus 3.6 mg/dL (2.5-4.5) 07/10/18 07:55 Magnesium 2.0 mg/dL (1.6-2.3) 07/10/18 07:55 Total Bilirubin 0.4 mg/dL (0.2-1.3) 07/10/18 07:55 AST 33 U/L (14-36) 07/10/18 07:55 ALT 25 U/L (9-52) 07/10/18 07:55 Alkaline Phosphatase 85 U/L (38-126) 07/10/18 07:55 Troponin I < 0.0120 ng/mL (0.00-0.120) 07/09/18 01:30 Total Protein 7.0 g/dL (6.3-8.3) 07/10/18 07:55 Albumin 4.1 g/dL (3.5-5.0) 07/10/18 07:55 Globulin 2.9 gm/dL (2.2-3.9) 07/10/18 07:55 Albumin/Globulin Ratio 1.4 (1.0-2.1) 07/10/18 07:55 Lipase 149 U/L (23-300) 07/09/18 01:53 Free T4 0.77 ng/dL (0.78-2.19) L 07/10/18 07:55 TSH 3rd Generation 0.47 mIU/L (0.46-4.68) 07/10/18 07:55 Urine Color Colorless (YELLOW) 07/09/18 03:04 Urine Clarity Clear (Clear) 07/09/18 03:04 Urine pH 8.0 (5.0-8.0) 07/09/18 03:04 Ur Specific [place] 1.006 (1.003-1.030) 07/09/18 03:04 Urine Protein Negative mg/dL (NEGATIVE) 07/09/18 03:04 Urine Glucose (UA) Normal mg/dL (Normal) 07/09/18 03:04 Urine Ketones Negative mg/dL (NEGATIVE) 07/09/18 03:04 Urine Blood Negative (NEGATIVE) 07/09/18 03:04 Urine Nitrate Negative (NEGATIVE) 07/09/18 03:04 Urine Bilirubin Negative (NEGATIVE) 07/09/18 03:04 Urine Urobilinogen Normal mg/dL (0.2-1.0) 07/09/18 03:04 Ur Leukocyte Esterase Neg Yina/uL (Negative) 07/09/18 03:04 Urine WBC (Auto) 1 /hpf (0-5) 07/09/18 03:04 Urine Bacteria Rare (<OCC) 07/09/18 03:04 Urine HCG, Qual Negative (NEGATIVE) 07/09/18 03:04 Urine Opiates Screen Negative (NEGATIVE) 07/09/18 03:04 Urine Methadone Screen Negative (NEGATIVE) 07/09/18 03:04 Ur Barbiturates Screen Negative (NEGATIVE) 07/09/18 03:04 Ur Phencyclidine Scrn Negative (NEGATIVE) 07/09/18 03:04 Ur Amphetamines Screen Negative (NEGATIVE) 07/09/18 03:04 U Benzodiazepines Scrn Negative (NEGATIVE) 07/09/18 03:04 U Oth Cocaine Metabols Negative (NEGATIVE) 07/09/18 03:04 U Cannabinoids Screen Negative (NEGATIVE) 07/09/18 03:04 Alcohol, Quantitative < 10 mg/dl (0-10) 07/09/18 01:30 - Hospital Course Hospital Course: Upon Admission Patient is a 52 year old female with past medical history of GERD presenting to ED with dizziness since yesterday evening with associated nausea/vomiting. Patient describes dizziness as sensation of room spinning around her. She states the symptoms began after drinking one Monster energy drink. No fevers/chills, headaches, chest pain, palpitations, sob, cough, abdominal pain, diarrhea/constipation, dysuria, or changes in stool. Hospital Course Patient is a 52 yo female admitted for dizziness with n/v. Patient was noted to be in Afib during admission. Cardiology was consulted and recommeded patient avoid energy drinks as that is likely source of trigger. Patient is educated to followup outpatient with [facility] for referral to ENT for chronic dizziness. Patient able to ambulate currently without episodes of dizziness. Discharge Plan Patient is to be discharged home. 1) Patient is to follow up with [facility] with Dr. Elena. Phone number is [phone]. Address is [address] [place] [address]. Patient will need to follow up for referral to ENT for her chronic dizziness. 2) Patient is to take the following medications: --aspirin 81 mg daily with breakfast 3) Avoid energy drinks and caffeinated substances. 4) If symptoms worsen, please visit your nearest emergency room. Increasing palpitations, increased heart rate, shortness of breath, dizziness/lightheade dness could mean the return of symptoms you were hospitalized for - Atrial fibrillation and vertigo. Patient agrees with the above care plan. Discharge Exam - Head Exam Head Exam: ATRAUMATIC, NORMAL INSPECTION - Eye Exam Eye Exam: EOMI, Normal appearance. absent: Nystagmus, Scleral icterus - ENT Exam ENT Exam: Mucous Membranes Moist - Respiratory Exam Respiratory Exam: Clear to PA & Lateral, NORMAL BREATHING PATTERN. absent: Rales, Rhonchi, Wheezes, Respiratory Distress - Cardiovascular Exam Cardiovascular Exam: REGULAR RHYTHM, +S1, +S2. absent: Tachycardia - GI/Abdominal Exam GI & Abdominal Exam: Normal Bowel Sounds, Soft. absent: Diminished Bowel Sounds, Distended, Firm, Guarding - Extremities Exam Extremities exam: normal inspection - Neurological Exam Neurological exam: Alert, Normal Gait, Oriented x3 Additional comments: ambulates without dizziness - Psychiatric Exam Psychiatric exam: Normal Affect, Normal Mood - Skin Skin Exam: Dry, Intact, Normal Color Discharge Plan - Discharge Medications Prescriptions: Aspirin [Aspirin Chewable] 81 mg PO DAILY #30 chew - Follow Up Plan Condition: GOOD Disposition: HOME/ ROUTINE Additional Instructions: Patient is to be discharged home. 1) Patient is to follow up with [facility] with Dr. Elena. Phone number is [phone]. Address is [address] [place] [address]. Patient will need to follow up for referral to ENT for her chronic dizziness. 2) Patient is to take the following medications: --aspirin 81 mg daily with breakfast 3) Avoid energy drinks and caffeinated substances. 4) If symptoms worsen, please visit your nearest emergency room. Increasing palpitations, increased heart rate, shortness of breath, dizziness/lightheadedness could mean the return of symptoms you were hospitalized for - Atrial fibrillation and vertigo. Patient agrees with the above care plan. Referrals: Parminder Elena DO [[facility]] -
[2018-07-10] MEDS: Aluminum Hydroxide/Magnesium Hydroxide Susp (30 mL) PO PRN (17:14)
--- NOTE | 2018-07-10 17:59 | CP.PCM.PN ---
Subjective - Date & Time of Evaluation Date of Evaluation: 07/10/18 Time of Evaluation: 08:00 - Subjective Subjective: Cardiology Progress Note for Dr. Patel: Patient was seen and examined at bedside in the AM. Patient denies chest pain, palpitations, shortness of breath, nausea, vomiting, diarrhea or constipation. Patient also states she will not drink an energy drink again. Objective - Vital Signs/Intake and Output Vital Signs (last 24 hours): Temp Pulse Resp BP Pulse Ox 97.3 F L 98 H 20 132/78 98 07/10/18 16:06 07/10/18 16:06 07/10/18 16:06 07/10/18 16:06 07/10/18 16:06 - Medications Medications: Current Medications Al Hydrox/Mg Hydrox/Simethicone (Maalox 30 Ml) 30 ml PO Q6 PRN PRN Reason: Indigestion / Heartburn Last Admin: 07/10/18 17:14 Dose: 30 ml Aspirin (Aspirin Chewable) 81 mg PO DAILY [facility] Last Admin: 07/10/18 10:29 Dose: 81 mg Heparin Sodium (Porcine) (Heparin) 5,000 units SC Q8 [facility] Last Admin: 07/10/18 14:50 Dose: 5,000 units Influenza Virus Vaccine (Flucelvax Quad [id number] Syr) 60 mcg IM .ONCE ONE Stop: 07/11/18 10:01 Meclizine HCl (Antivert) 12.5 mg PO BID PRN PRN Reason: Dizziness Last Admin: 07/10/18 08:09 Dose: 12.5 mg Ondansetron HCl (Zofran Inj) 4 mg IVP Q6 PRN PRN Reason: nausea Pantoprazole Sodium (Protonix Inj) 40 mg IVP DAILY [facility] Last Admin: 07/10/18 10:29 Dose: 40 mg Pneumococcal Polyvalent Vaccine (Pneumovax 23 Vaccine) 0.5 ml IM .ONCE ONE Stop: 07/11/18 10:01 - Labs Labs: 07/10/18 07:55 07/10/18 07:55 PT 12.0 SECONDS (9.7-12.2) 07/09/18 02:04 INR 1.1 07/09/18 02:04 APTT 33 SECONDS (21-34) 07/09/18 02:04 - Constitutional Appears: No Acute Distress - Head Exam Head Exam: ATRAUMATIC, NORMAL INSPECTION - Eye Exam Eye Exam: EOMI, Normal appearance - ENT Exam ENT Exam: Mucous Membranes Moist - Respiratory Exam Respiratory Exam: Clear to Ausculation Bilateral, NORMAL BREATHING PATTERN - Cardiovascular Exam Cardiovascular Exam: REGULAR RHYTHM, +S1, +S2 - GI/Abdominal Exam GI & Abdominal Exam: Soft, Normal Bowel Sounds. absent: Tenderness - Extremities Exam Extremities Exam: Normal Inspection - Neurological Exam Neurological Exam: Alert, Awake, Oriented x3 - Psychiatric Exam Psychiatric exam: Normal Affect - Skin Skin Exam: Normal Color Assessment and Plan - Assessment and Plan (Free Text) Assessment: 52 year old female with past medical history of GERD presented to the ER for dizziness. New onset atrial fibrillation - resolved possibly secondary to consumption of energy drinks CHADS-VASc score: 1 - UDS and Alcohol: Negative - EKG: afib; (previous EKG 12/12/15 showed NSR); Second EKG: NSR - TSH 0.47 (wnl) - Continue Aspirin 81mg po daily - ECHO completed 07/09/[address] Patel - normal EF; prominent valvular muscle - Encouraged the patient to stop the consumption of energy drinks. No further cardiac work up recommended at this time. Case discussed with Dr. Jorge Hawkins PGY-2
[2018-07-11] MEDS ORDERED: Influenza Vaccine 60 mcg/0.5 mL SYR (4YR UP) IM ONE (10:00)
[2018-07-11] MEDS ORDERED: Pneumococcal 23-Valent Vaccine IM ONE (10:00)
--- NOTE | 2018-07-12 14:11 | CARD ---
APPROVED REPORT Date of service: 07/09/2018 EXAM: Two-dimensional and M-mode echocardiogram with Doppler and color Doppler. Other Information Quality : Rhythm : Tachycardia INDICATION Dizziness and Vertigo Atrial Fibrillation Palpitations 2D DIMENSIONS IVSd0.7 (0.7-1.1cm)Aortic Root (2D)2.5 (2.0-3.7cm) LVDd3.8 (3.9-5.9cm)PWd0.8 (0.7-1.1cm) LA Rhffpu31 (18-58mL)LVDs2.0 (2.5-4.0cm) FS (%) 47.0 %LVEF (%)79.1 (>50%) LVEF (Mckeon's)79.55 %IVC0.00 cm M-Mode DIMENSIONS RVDd0.86 (2.1-3.2cm)Left Atrium (MM)3.36 (2.5-4.0cm) IVSd0.31 (0.7-1.1cm)Aortic Root2.16 (2.2-3.7cm) LVDd5.00 (4.0-5.6cm)Aortic Cusp Exc.1.54 (1.5-2.0cm) PWd0.49 (0.7-1.1cm)FS (%) 44 % LVDs2.81 (2.0-3.8cm)LVEF (%)75 (>50%) Mitral Valve MV E Rfxulrvv24.1cm/sMV A Hmpijssp888.3cm/sE/A ratio0.8 TDI Lateral E' Peak V9.97cm/sMedial E' Peak V9.19cm/sE/Lateral E'8.8 E/Medial E'9.6 Tricuspid Valve TR Peak Ollxyuxo135bd/sTR Peak Gr.14xnMmJSVZ51xrSs LEFT VENTRICLE The left ventricle is normal size. There is normal left ventricular wall thickness. The left ventricular function is normal. The left ventricular ejection fraction is within the normal range. No regional wall motion abnormalities noted. The left ventricular diastolic function is normal. No left ventricle thrombus noted on this study. There is no ventricular septal defect visualized. There is no left ventricular aneurysm. There is no mass noted in the left ventricle. RIGHT VENTRICLE The right ventricle is normal size. There is normal right ventricular wall thickness. The right ventricular systolic function is normal. ATRIA The left atrium size is normal. The right atrium size is normal. The interatrial septum is intact with no evidence for an atrial septal defect. AORTIC VALVE The aortic valve is normal in structure and function. No aortic regurgitation is present. There is no aortic valvular stenosis. There is no aortic valvular vegetation. MITRAL VALVE The mitral valve is normal in structure and function. There is no evidence of mitral valve prolapse. There is no mitral valve stenosis. There is no mitral valve regurgitation noted. TRICUSPID VALVE The tricuspid valve is normal in structure and function. There is mild tricuspid regurgitation. Right ventricular systolic pressure is estimated at 30-40 mmHg. There is no tricuspid valve prolapse or vegetation. There is no tricuspid valve stenosis. PULMONIC VALVE The pulmonary valve is normal in structure and function. There is no pulmonic valvular regurgitation. There is no pulmonic valvular stenosis. GREAT VESSELS The aortic root is normal in size. The ascending aorta is normal in size. The pulmonary artery is normal. The IVC is normal in size and collapses >50% with inspiration. PERICARDIAL EFFUSION The pericardium appears normal. There is no pleural effusion. <Conclusion> The left ventricular function is normal. The left ventricular ejection fraction is within the normal range. No regional wall motion abnormalities noted. The aortic valve is normal in structure and function. The mitral valve is normal in structure and function.
== END 2018-07-10 19:18 | disposition home or self-care (01) | DRG 201 ==
LOC: C.ER 00:30 → C.6T 02:51
PROVIDERS: ADMIT Internal Medicine; ATTEND Internal Medicine
DX: I48.0 Paroxysmal atrial fibrillation (principal); E87.6 Hypokalemia; H81.10 Benign paroxysmal vertigo, unspecified ear; J31.0 Chronic rhinitis; K21.9 Gastro-esophageal reflux disease without esophagitis

== ENCOUNTER 2018-08-01 12:13 | Observation (INO) | payer OTHER ==
[2018-08-01 13:47] LABS: BASO % 0.5 % (0.0-2.0); EOS # 0.1 K/uL (0.0-0.7); EOS % 1.3 % (0.0-4.0); HEMOGLOBIN 12.5 g/dL (11.0-16.0); LYMPH # 1.3 K/uL (1.0-4.3); LYMPH % 22.9 % (20.0-40.0); MEAN CELL VOLUME 92.2 fL (81.0-99.0); MEAN CORPUSCULAR HEMOGLOBIN 30.8 pg (27.0-31.0); MEAN CORPUSCULAR HGB CONC 33.4 g/dL (33.0-37.0); MEAN PLATELET VOLUME 11.6 fL (7.2-11.7); MONO # 0.6 K/uL (0.0-0.8); NEUT # 3.7 K/uL (1.8-7.0); NEUT % 65.3 % (50.0-75.0); NRBC % 0.1 % (0.0-2.0); RBC 4.06 Mil/uL (3.80-5.20); RED CELL DISTRIBUTION WIDTH 13.2 % (11.5-14.5); WHITE BLOOD COUNT 5.6 K/uL (4.8-10.8)
[2018-08-01 13:54] LABS: INR 1.2; PROTHROMBIN TIME 13.3 SECONDS (9.7-12.2)
--- NOTE | 2018-08-01 14:02 | C.PDOC ---
History Of Present Illness 52 year old female presents to the ED for evaluation of palpitations which have been occurring intermittently over the past 2-3 days. Patient states that she was evaluated for same symptoms around 20 days ago and was told she may have atrial fibrillation and low potassium. She was discharged with prescription for 81mg Aspirin which she has been taking every day, except for today. Patient reports having a syncopal episode while sitting in her car earlier today. She then went to a pharmacy to buy [id number] She also reports a slight headache and feeling lightheaded. Patient denies nausea, vomiting, vision change, extremity numbness/weakness. Time Seen by Provider: 08/01/18 13:02 Chief Complaint (Nursing): Palpitations History Per: Patient History/Exam Limitations: no limitations Onset/Duration Of Symptoms: Hrs Associated Symptoms: Headache. denies: Blurred Vision, Focal Weakness Additional History Per: Patient Past Medical History Reviewed: Historical Data, Nursing Documentation, Vital Signs Vital Signs: Last Vital Signs Temp 97.9 F 08/01/18 12:31 Pulse 99 H 08/01/18 12:31 Resp 18 08/01/18 12:31 BP 154/84 H 08/01/18 12:31 Pulse Ox 99 08/01/18 12:31 - Medical History PMH: Atrial Fibrillation, GERD Surgical History: No Surg Hx Family History: States: Unknown Family Hx - Social History Hx Tobacco Use: No Hx Alcohol Use: No Hx Substance Use: No - Immunization History Hx Tetanus Toxoid Vaccination: No Hx Influenza Vaccination: No Hx Pneumococcal Vaccination: No Review Of Systems Eyes: Negative for: Vision Change Cardiovascular: Positive for: Palpitations Gastrointestinal: Negative for: Nausea, Vomiting Neurological: Negative for: Weakness, Numbness Physical Exam - Physical Exam Additional Physical Exam Comments: Constitutional: No acute distress. Head: Normocephalic. Atraumatic. Eyes: PERRL. ENT: Moist mucous membranes. Neck: Supple. Cardiovascular: Radial pulse 2+ bilaterally. Tachycardia Chest: No tenderness. Respiratory: Clear to auscultation bilaterally. GI: Soft. Nontender. Nondistended. Back: No CVA tenderness. Musculoskeletal: No tenderness or swelling of extremities. Skin: No rash. Neurologic: Alert, no focal deficit. ED Course And Treatment - Laboratory Results Result Diagrams: 08/01/18 13:38 08/01/18 13:38 Lab Results: PT 13.3 SECONDS (9.7-12.2) H 08/01/18 13:38 INR 1.2 08/01/18 13:38 APTT 35 SECONDS (21-34) H 08/01/18 13:38 ECG: Interpreted By Me, Viewed By Me ECG Rhythm: Sinus Rhythm Rate From EC O2 Sat by Pulse Oximetry: 99 - Other Rad CXR X-Ray: Viewed By Me, Read By Radiologist Interpretation: Date of service: 08/01/2018. HISTORY: palpitations. COMPARISON: 07/09/2018. FINDINGS: LUNGS: No active pulmonary disease. PLEURA: No significant pleural effusion identified, no pneumothorax apparent. CARDIOVASCULAR: No atherosclerotic calcification present. Normal. OSSEOUS STRUCTURES: No significant abnormalities. VISUALIZED UPPER ABDOMEN: Normal. OTHER FINDINGS: None. IMPRESSION: No active disease. No significant interval change compared to the prior examination(s). Medical Decision Making Medical Decision Making: Progress: Bloodwork and CXR ordered and reviewed. EKG: Normal Sinus Rhythm at rate 100bpm. No ST/T wave changes. Dr. Sanchez accepts patient to hospitalist service. Disposition - Disposition Disposition: HOSPITALIZED Disposition Time: 16:00 Condition: FAIR - Clinical Impression Clinical Impression: Palpitations, Syncope - Scribe Statement The provider has reviewed the documentation as recorded by the Scribe (Elida Carvajal) Provider Attestation: All medical record entries made by the Scribe were at my direction and personally dictated by me. I have reviewed the chart and agree that the record accurately reflects my personal performance of the history, physical exam, medical decision making, and the department course for this patient. I have also personally directed, reviewed, and agree with the discharge instructions and disposition.
[2018-08-01 14:06] LABS: ALB/GLOB RATIO 1.3 (1.0-2.1); ALBUMIN 4.3 g/dL (3.5-5.0); ALT/SGPT 21 U/L (9-52); AST/SGOT 33 U/L (14-36); BLOOD UREA NITROGEN 10 mg/dL (7-17); CALCIUM 9.5 mg/dl (8.6-10.4); GFR NON-AFRICAN AMERICAN > 60
[2018-08-01 14:20] LABS: CK-MB < 0.22 ng/mL (0.0-3.38)
--- NOTE | 2018-08-01 14:38 | RAD ---
Date of service: 08/01/2018 HISTORY: palpitations COMPARISON: 07/09/2018. FINDINGS: LUNGS: No active pulmonary disease. PLEURA: No significant pleural effusion identified, no pneumothorax apparent. CARDIOVASCULAR: No atherosclerotic calcification present Normal. OSSEOUS STRUCTURES: No significant abnormalities. VISUALIZED UPPER ABDOMEN: Normal. OTHER FINDINGS: None. IMPRESSION: No active disease. No significant interval change compared to the prior examination(s).
--- NOTE | 2018-08-01 16:23 | CP.PCM.PN ---
Objective - Vital Signs/Intake and Output Vital Signs (last 24 hours): Temp Pulse Resp BP Pulse Ox 97.7 F 94 H 18 133/85 98 08/01/18 15:36 08/01/18 15:36 08/01/18 15:36 08/01/18 15:36 08/01/18 15:36 - Labs Labs: 08/01/18 13:38 08/01/18 13:38 PT 13.3 SECONDS (9.7-12.2) H 08/01/18 13:38 INR 1.2 08/01/18 13:38 APTT 35 SECONDS (21-34) H 08/01/18 13:38
--- NOTE | 2018-08-01 16:28 | CP.PCM.HP ---
<IrajNavjot - Last Filed: 08/01/18 17:44> History of Present Illness - History of Present Illness History of Present Illness: Abdulaziz Galo PGY-[address] Sanchez Patient is a 52 year old female with past medical history of A.fib and GERD presenting to ED with headaches and palpitations since one month, and has been feeling lightheaded and dizzy for 3 days. She reports taking ASA 81x4 today and a potassium OTC pill. Patient says the paoin was worse with activity and is better now that shes laying down. She had associated L arm numbness into the hands. She also reports a burning chest pain. Patient reports feeling upset lately and cries during interview. Her mother 4 years ago from sepsis on a trip and she was devasted from her . Pt has been forgetting to eat and drink lately as well she states. Also says she used to drink a lot of energry drink and coffee but now obstains. Patient was recently admitted to [facility] on 07/09/18 for new onset A.fib ROS pos+ chest pain, dizzy, lightheaded, vomiting x1, life stresses neg- syncope, vision change, recent illness, jaw pain, sweating, PMHx: A.fib, GERD PSHx: ovarian cyst removal Allergies: NKDA Home Medications: ASA 81mg PO daily Social Hx: denies alcohol, tobacco, illicit drug use Family Hx: dad ventricular defect, mom from sepsis PMD: [facility] Present on Admission - Present on Admission Any Indicators Present on Admission: No Review of Systems - Constitutional Constitutional: As Per HPI, Headache, Malaise, Weakness. absent: Fever, Weight Gain, Weight Loss - EENT Eyes: absent: Blurred Vision, Change in Vision Ears: Dizziness Nose/Mouth/Throat: absent: Neck Pain - Cardiovascular Cardiovascular: Lightheadedness, Palpitations. absent: Pain Radiating to Arm/Neck/Jaw, Leg Edema - Respiratory Respiratory: absent: Cough, Pain on Inspiration, Pain with Coughing - Gastrointestinal Gastrointestinal: Vomiting. absent: Abdominal Pain, Hematemesis, Hematochezia - Reproductive: Female Reproductive:Female: Amenorrhea (3 years), Menopausal (hot flashes) - Menstruation Menstruation: Amenorrhea - Musculoskeletal Musculoskeletal: Numbness (L hand). absent: Back Pain - Neurological Neurological: Dizziness - Psychiatric Psychiatric: Abnormal Sleep Pattern, Depression - Endocrine Endocrine: Palpitations. absent: Excessive Sweating Past Patient History - Infectious Disease Hx of Infectious Diseases: None - Past Medical History & Family History Past Medical History?: Yes - Past Social History Smoking Status: Never Smoked - CARDIAC Hx Atrial Fibrillation: Yes - MUSCULOSKELETAL/RHEUMATOLOGICAL Hx Falls: No - GASTROINTESTINAL Hx Gastroesophageal Reflux: Yes - PSYCHIATRIC Hx Substance Use: No - SURGICAL HISTORY Hx Surgeries: Yes Other/Comment: OVARIAN CYST REMOVAL - ANESTHESIA Hx Anesthesia: Yes Hx Anesthesia Reactions: No Hx Malignant Hyperthermia: No Meds Allergies/Adverse Reactions: Allergies Allergy/AdvReac Type Severity Reaction Status Date / Time DUST Allergy Mild Uncoded 08/01/18 12:34 POLLEN Allergy Mild Uncoded 08/01/18 12:34 Physical Exam - Constitutional Appears: Non-toxic, Unkempt - Head Exam Head Exam: ATRAUMATIC, NORMAL INSPECTION - Eye Exam Eye Exam: EOMI, Normal appearance Pupil Exam: NORMAL ACCOMODATION, PERRL - ENT Exam ENT Exam: Mucous Membranes Dry - Neck Exam Neck exam: Positive for: Full Rom, Lymphadenopathy (L sub jgiar) - Respiratory Exam Respiratory Exam: Clear to Auscultation Bilateral. absent: Wheezes - Cardiovascular Exam Cardiovascular Exam: RRR, +S1, +S2. absent: Diastolic murmur, Irregular Rhythm, Systolic Murmur - GI/Abdominal Exam GI & Abdominal Exam: Hyperactive Bowel Sounds, Soft. absent: Guarding, Rebound, Rigid - Extremities Exam Extremities exam: Positive for: normal capillary refill, pedal pulses present - Neurological Exam Neurological exam: Alert, CN II-XII Intact, Normal Gait, Oriented x3 - Psychiatric Exam Psychiatric exam: Anxious, Depressed - Skin Skin Exam: Dry Results - Vital Signs Recent Vital Signs: Last Vital Signs Temp 97.7 F 08/01/18 15:36 Pulse 94 H 08/01/18 15:36 Resp 18 08/01/18 15:36 BP 133/85 08/01/18 15:36 Pulse Ox 98 08/01/18 15:36 - Labs Result Diagrams: 08/01/18 13:38 08/01/18 13:38 Labs: Laboratory Results - last 24 hr 08/01/18 08/01/18 08/01/18 12:28 13:38 13:38 WBC 5.6 RBC 4.06 Hgb 12.5 Hct 37.4 MCV 92.2 MCH 30.8 MCHC 33.4 RDW 13.2 Plt Count 189 MPV 11.6 Neut % (Auto) 65.3 Lymph % (Auto) 22.9 Long % (Auto) 10.0 Eos % (Auto) 1.3 Baso % (Auto) 0.5 Neut # (Auto) 3.7 Lymph # (Auto) 1.3 Long # (Auto) 0.6 Eos # (Auto) 0.1 Baso # (Auto) 0.0 PT 13.3 H INR 1.2 APTT 35 H Sodium Potassium Chloride Carbon Dioxide Anion Gap BUN Creatinine Est GFR ( Amer) Est GFR (Non-Af Amer) POC Glucose (mg/dL) 125 H Random Glucose Calcium Total Bilirubin AST ALT Alkaline Phosphatase Total Creatine Kinase CK-MB (Mass) Troponin I Total Protein Albumin Globulin Albumin/Globulin Ratio 08/01/18 13:38 WBC RBC Hgb Hct MCV MCH MCHC RDW Plt Count MPV Neut % (Auto) Lymph % (Auto) Long % (Auto) Eos % (Auto) Baso % (Auto) Neut # (Auto) Lymph # (Auto) Long # (Auto) Eos # (Auto) Baso # (Auto) PT INR APTT Sodium 142 Potassium 4.7 Chloride 104 Carbon Dioxide 31 H Anion Gap 12 BUN 10 Creatinine 0.9 Est GFR ( Amer) > 60 Est GFR (Non-Af Amer) > 60 POC Glucose (mg/dL) Random Glucose 83 Calcium 9.5 Total Bilirubin 0.2 AST 33 ALT 21 Alkaline Phosphatase 92 Total Creatine Kinase 81 CK-MB (Mass) < 0.22 Troponin I < 0.0120 Total Protein 7.6 Albumin 4.3 Globulin 3.3 Albumin/Globulin Ratio 1.3 Assessment & Plan - Assessment and Plan (Free Text) Assessment: Patient is a 52 year old female with past medical history of A.fib and GERD presenting to ED with palpitations, admitted for further evaluation and treatment of Palpitations. P: History of A.fib/ Palpitations - patient with palpitations - Admit to Tele - patient was seen by Dr. Elena on 07/15/18 when calculated CHADSVASC was 1, and anticoagulation was not started at that time. - EKG: Normal Sinus Rhythm at 100bpm - CXR: no active disease - ECHO 07/09/18: normal LV function and EF. no regional wall motion abnormalities, aortic and mitral valves normal in structure and function. - D-dimer not elevated - Pro BNP not elevated - troponin negative - f/u TSH and free T4 - f/u GIL panels - f/u serum Alcohol - f/u UDS - CHADSVASC score of 1, correlating with low risk - HASBLED score of 1, correlating with low risk for major bleeding - tele monitoring - continue home ASA 81mg PO daily - f/u FSH : possible menopausal symptoms - f/u Carotid US - Orthostatics Dehydration NS @100/hr x24hrs Stresses/ adjustment disorder Pastoral Care Psych- Hola consulted PPX: GI: none DVT: SCDs, heparin 5ku sc q12 Heart Healthy Diet Patient seen and case disccussed with Dr. Sanchez <Lilliam Sanchez V - Last Filed: 08/03/18 21:53> Results - Vital Signs Recent Vital Signs: Last Vital Signs Temp 97.8 F 08/02/18 15:00 Pulse 91 H 08/02/18 15:00 Resp 20 08/02/18 15:00 BP 144/83 08/02/18 15:00 Pulse Ox 98 08/02/18 15:00 - Labs Result Diagrams: 08/02/18 07:34 08/02/18 07:34 Attending/Attestation - Attestation I have personally seen and examined this patient.: Yes I have fully participated in the care of the patient.: Yes I have reviewed all pertinent clinical information: Yes Notes (Text): This is late computer entry for 08/01/18. Patient seen, examined and case discussed with medical safety director. Patient seen and evaluated in the emergency room bed 14. Patient came for asso ciated palpitations causing her to felt faint but did not lose consciousness. Patient has had recent cardiology workup in June noted for atrial fibrillation and was recommended for aspirin and to refrain from energy drinks. Reviewed EKG on admission which is normal sinus rhythm. We have discussed with patient who reports she is off caffeine products including energy drinks, no alcohol, reports she has been in menopause for 3 years reports occasional hot flash. patient reports she does not sleep well through the night; denies acute stressors; in a relationship, stable. Will monitor for 24 hours on telemetry. obtain cardiology and psych evaluation. 1. History of Paroxysmal Atrial fibrillation Palpitations Assessment/Plan * observation on telemetry * Cardiology billing control clerk obtained. * Patient was seen by Dr. Elena at the [facility] on 07/15/18 when calculated CHADSVASC was 1, and anticoagulation was not started at that time. * EKG: Normal Sinus Rhythm at 100bpm * CXR: no active disease * ECHO 07/09/18: normal LV function and EF. no regional wall motion abnormalities, aortic and mitral valves normal in structure and function. * D-dimer not elevated * Pro BNP not elevated * troponin negative * Check TSH and free T4 * Follow up cardiac enzymes X2, q 6hours * f/u serum Alcohol * f/u UDS * CHADSVASC score of 1, correlate to anticoagulation with aspirin * HASBLED score of 1, correlating with low risk for major bleeding * continue home ASA 81mg PO daily * Check if related for post menopausal symptoms, underlying anxiety, patient appears dehydrated at bedside 2. Dehydration Assessment/Plan * IV fluids 3. Anxiety Assessment/Plan * patient denies acute psychosocial stressors at bedside but appears worn and tired. 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 PPX: Assessment/Plan * GI PPx: none * DVT PPx: SCDs, heparin 5000 units [id number] * Heart Healthy Diet
[2018-08-01 18:30] LABS: CK-MB < 0.22 ng/mL (0.0-3.38)
[2018-08-01] MEDS: Folic Acid 1 MG, Multivitamin (MVI) 10 ML, Thiamine 100 MG in Sodium Chloride 0.9% 1,00... IV SCH (21:50)
[2018-08-01 22:41] LABS: BARBITURATES, UR NEGATIVE (NEGATIVE); BENZODIAZEPINES, UR NEGATIVE (NEGATIVE); OPIATES, UR NEGATIVE (NEGATIVE); PHENCYCLIDINE, UR NEGATIVE (NEGATIVE)
[2018-08-01 23:23] LABS: CK-MB < 0.22 ng/mL (0.0-3.38)
--- NOTE | 2018-08-02 06:56 | CP.PCM.DIS ---
<Vasiliy Mix - Last Filed: 08/02/18 17:18> Provider - Provider Date of Admission: 08/01/18 16:07 Attending physician: Lilliam Sanchez DO Consults: 08/01/18 17:42 Psychiatry Consult Routine Comment: Consulting Provider: Ana Lilia Simental Consulting Physician: Ana Lilia Simental Reason for Consult: mom , sad, not taking care of self, panic attacks? 08/01/18 17:43 Pastoral Care Referral Routine Comment: Physician Instructions: Reason For Exam: mom , sad, panic attack? 08/01/18 18:49 Cardiology Consult Routine Comment: Consulting Provider: Liam Brown Consulting Physician: Liam Brown Reason for Consult: palpitations, paf Time Spent in preparation of Discharge (in minutes): 35 Diagnosis - Discharge Diagnosis (1) Paroxysmal A-fib Status: Acute (2) Palpitations Status: Acute (3) Dizziness Status: Chronic Hospital Course - Lab Results Lab Results: Most Recent Lab Values WBC 5.6 K/uL (4.8-10.8) 08/01/18 13:38 RBC 4.06 Mil/uL (3.80-5.20) 08/01/18 13:38 Hgb 12.5 g/dL (11.0-16.0) 08/01/18 13:38 Hct 37.4 % (34.0-47.0) 08/01/18 13:38 MCV 92.2 fL (81.0-99.0) 08/01/18 13:38 MCH 30.8 pg (27.0-31.0) 08/01/18 13:38 MCHC 33.4 g/dL (33.0-37.0) 08/01/18 13:38 RDW 13.2 % (11.5-14.5) 08/01/18 13:38 Plt Count 189 K/uL (130-400) 08/01/18 13:38 MPV 11.6 fL (7.2-11.7) 08/01/18 13:38 Neut % (Auto) 65.3 % (50.0-75.0) 08/01/18 13:38 Lymph % (Auto) 22.9 % (20.0-40.0) 08/01/18 13:38 Donley % (Auto) 10.0 % (0.0-10.0) 08/01/18 13:38 Eos % (Auto) 1.3 % (0.0-4.0) 08/01/18 13:38 Baso % (Auto) 0.5 % (0.0-2.0) 08/01/18 13:38 Neut # (Auto) 3.7 K/uL (1.8-7.0) 08/01/18 13:38 Lymph # (Auto) 1.3 K/uL (1.0-4.3) 08/01/18 13:38 Donley # (Auto) 0.6 K/uL (0.0-0.8) 08/01/18 13:38 Eos # (Auto) 0.1 K/uL (0.0-0.7) 08/01/18 13:38 Baso # (Auto) 0.0 K/uL (0.0-0.2) 08/01/18 13:38 PT 13.3 SECONDS (9.7-12.2) H 08/01/18 13:38 INR 1.2 08/01/18 13:38 APTT 35 SECONDS (21-34) H 08/01/18 13:38 D-Dimer, Quantitative < 200 ng/mlDDU (0-243) 08/01/18 16:22 Sodium 142 mmol/L (132-148) 08/01/18 13:38 Potassium 4.7 mmol/L (3.6-5.2) 08/01/18 13:38 Chloride 104 mmol/L (98-107) 08/01/18 13:38 Carbon Dioxide 31 mmol/L (22-30) H 08/01/18 13:38 Anion Gap 12 (10-20) 08/01/18 13:38 BUN 10 mg/dL (7-17) 08/01/18 13:38 Creatinine 0.9 mg/dL (0.7-1.2) 08/01/18 13:38 Est GFR ( Amer) > 60 08/01/18 13:38 Est GFR (Non-Af Amer) > 60 08/01/18 13:38 POC Glucose (mg/dL) 125 mg/dL (65-110) H 08/01/18 12:28 Random Glucose 83 mg/dL (65-105) 08/01/18 13:38 Calcium 9.5 mg/dl (8.6-10.4) 08/01/18 13:38 Total Bilirubin 0.2 mg/dL (0.2-1.3) 08/01/18 13:38 AST 33 U/L (14-36) 08/01/18 13:38 ALT 21 U/L (9-52) 08/01/18 13:38 Alkaline Phosphatase 92 U/L (38-126) 08/01/18 13:38 Total Creatine Kinase 76 U/L (30-135) 08/01/18 22:50 CK-MB (Mass) < 0.22 ng/mL (0.0-3.38) 08/01/18 22:50 Troponin I < 0.0120 ng/mL (0.00-0.120) 08/01/18 22:50 NT-Pro-B Natriuret Pep 39.6 pg/mL (0-900) 08/01/18 16:22 Total Protein 7.6 g/dL (6.3-8.3) 08/01/18 13:38 Albumin 4.3 g/dL (3.5-5.0) 08/01/18 13:38 Globulin 3.3 gm/dL (2.2-3.9) 08/01/18 13:38 Albumin/Globulin Ratio 1.3 (1.0-2.1) 08/01/18 13:38 Free T4 0.74 ng/dL (0.78-2.19) L 08/01/18 19:14 TSH 3rd Generation 0.48 mIU/L (0.46-4.68) 08/01/18 16:42 Urine Opiates Screen Negative (NEGATIVE) 08/01/18 22:08 Urine Methadone Screen Negative (NEGATIVE) 08/01/18 22:08 Ur Barbiturates Screen Negative (NEGATIVE) 08/01/18 22:08 Ur Phencyclidine Scrn Negative (NEGATIVE) 08/01/18 22:08 Ur Amphetamines Screen Negative (NEGATIVE) 08/01/18 22:08 U Benzodiazepines Scrn Negative (NEGATIVE) 08/01/18 22:08 U Oth Cocaine Metabols Negative (NEGATIVE) 08/01/18 22:08 U Cannabinoids Screen Negative (NEGATIVE) 08/01/18 22:08 Alcohol, Quantitative < 10 mg/dl (0-10) 08/01/18 16:42 - Hospital Course Hospital Course: On admission: Patient is a 52 year old female with past medical history of A.fib and GERD presenting to ED with headaches and palpitations since one month, and has been feeling lightheaded and dizzy for 3 days. She reports taking ASA 81x4 today and a potassium OTC pill. Patient says the paoin was worse with activity and is better now that shes laying down. She had associated L arm numbness into the hands. She also reports a burning chest pain. Patient reports feeling upset lately and cries during interview. Her mother 4 years ago from sepsis on a trip and she was devasted from her . Pt has been forgetting to eat and drink lately as well she states. Also says she used to drink a lot of energry drink and coffee but now obstains. Patient was recently admitted to [facility] on 07/09/18 for new onset A.fib Hospital course: Troponin was negative. DDimer was normal. CHADSVASC score of 1, correlating with low risk. Aspirin 81 mg daily was continued. She was hydrated with NS IVF. CXR showed no active disease. Head CT was ordered due to headache an afib, which was normal. Carotid dopplers ordered. Dr. Brown, cardiology, consulted. Pt was started on Metoprolol succinate 12.5 mg PO daily. Psychiatry, Dr. Simental, consulted for anxiety. Pt instructed not to take OTC mediations unless consulting with her PMD or Dr. Brown. On re-evaluation, pt is feeling better but still anxious. She has no chest pain, fever, chills, sob, palpitations, headache, visual changes, and reports that she feels "better." This is a summary of the hospital course. Please see EMR for full details. Discharge Exam - Head Exam Head Exam: ATRAUMATIC, NORMAL INSPECTION - Eye Exam Eye Exam: EOMI, Normal appearance - ENT Exam ENT Exam: Mucous Membranes Moist - Respiratory Exam Respiratory Exam: Clear to PA & Lateral, NORMAL BREATHING PATTERN, UNREMARKABLE. absent: Rales, Rhonchi, Wheezes, Respiratory Distress - Cardiovascular Exam Cardiovascular Exam: REGULAR RHYTHM, +S1, +S2. absent: Tachycardia, Diastolic murmur, Irregular Rhythm, Systolic Murmur - GI/Abdominal Exam GI & Abdominal Exam: Normal Bowel Sounds, Soft. absent: Tenderness - Extremities Exam Extremities exam: full ROM, normal capillary refill, normal inspection, pedal pulses present - Neurological Exam Neurological exam: Alert, Oriented x3 - Psychiatric Exam Psychiatric exam: Normal Affect, Normal Mood - Skin Skin Exam: Dry, Normal Color, Warm Discharge Plan - Discharge Medications Prescriptions: RX: Metoprolol Succinate XL [Toprol XL] 12.5 mg PO DAILY #14 tab - Follow Up Plan Condition: FAIR Disposition: HOME/ ROUTINE Instructions: Aspirin, Metoprolol, Palpitations (DC), Syncope (DC) Additional Instructions: Pt is medically stable for discharge home as per Dr. Sanchez. Please continue taking Aspirin 81 mg by mouth once daily. Please start taking Metoprolol succinate 12.5 mg by mouth once daily. You can take Tylenol OTC as needed for headache. Please follow up with your PMD at [facility] within 1 week of being discharged. Please follow up with Dr. Simental, Psychiatry, as well. Call office for appointment. If symptoms worsen, please go to the nearest Emergency Department for evaluation. Instructions were explained to the pt, who understands and agrees with discharge plan. Referrals: Liam Brown MD [Staff Provider] - Ana Lilia Simental MD [Staff Provider] - <Lilliam Sanchez V - Last Filed: 08/03/18 22:10> Provider - Provider Date of Admission: 08/01/18 16:07 Attending physician: Lilliam Sanchez DO Consults: 08/01/18 17:42 Psychiatry Consult Routine Comment: Consulting Provider: Ana Lilia Simental Consulting Physician: Ana Lilia Simental Reason for Consult: mom , sad, not taking care of self, panic attacks? 08/01/18 17:43 Pastoral Care Referral Routine Comment: Physician Instructions: Reason For Exam: mom , sad, panic attack? 08/01/18 18:49 Cardiology Consult Routine Comment: Consulting Provider: Liam Brown Consulting Physician: Liam Brown Reason for Consult: palpitations, paf Hospital Course - Lab Results Lab Results: Most Recent Lab Values WBC 4.9 K/uL (4.8-10.8) 08/02/18 07:34 RBC 3.87 Mil/uL (3.80-5.20) 08/02/18 07:34 Hgb 11.9 g/dL (11.0-16.0) 08/02/18 07:34 Hct 35.6 % (34.0-47.0) 08/02/18 07:34 MCV 91.9 fL (81.0-99.0) 08/02/18 07:34 MCH 30.8 pg (27.0-31.0) 08/02/18 07:34 MCHC 33.5 g/dL (33.0-37.0) 08/02/18 07:34 RDW 13.3 % (11.5-14.5) 08/02/18 07:34 Plt Count 172 K/uL (130-400) 08/02/18 07:34 MPV 11.5 fL (7.2-11.7) 08/02/18 07:34 Neut % (Auto) 50.4 % (50.0-75.0) 08/02/18 07:34 Lymph % (Auto) 35.5 % (20.0-40.0) 08/02/18 07:34 Donley % (Auto) 11.2 % (0.0-10.0) H 08/02/18 07:34 Eos % (Auto) 2.3 % (0.0-4.0) 08/02/18 07:34 Baso % (Auto) 0.6 % (0.0-2.0) 08/02/18 07:34 Neut # (Auto) 2.5 K/uL (1.8-7.0) 08/02/18 07:34 Lymph # (Auto) 1.7 K/uL (1.0-4.3) 08/02/18 07:34 Donley # (Auto) 0.6 K/uL (0.0-0.8) 08/02/18 07:34 Eos # (Auto) 0.1 K/uL (0.0-0.7) 08/02/18 07:34 Baso # (Auto) 0.0 K/uL (0.0-0.2) 08/02/18 07:34 PT 13.3 SECONDS (9.7-12.2) H 08/01/18 13:38 INR 1.2 08/01/18 13:38 APTT 35 SECONDS (21-34) H 08/01/18 13:38 D-Dimer, Quantitative < 200 ng/mlDDU (0-243) 08/01/18 16:22 Sodium 139 mmol/L (132-148) 08/02/18 07:34 Potassium 4.6 mmol/L (3.6-5.2) 08/02/18 07:34 Chloride 105 mmol/L (98-107) 08/02/18 07:34 Carbon Dioxide 29 mmol/L (22-30) 08/02/18 07:34 Anion Gap 9 (10-20) L 08/02/18 07:34 BUN 11 mg/dL (7-17) 08/02/18 07:34 Creatinine 0.8 mg/dL (0.7-1.2) 08/02/18 07:34 Est GFR ( Amer) > 60 08/02/18 07:34 Est GFR (Non-Af Amer) > 60 08/02/18 07:34 POC Glucose (mg/dL) 125 mg/dL (65-110) H 08/01/18 12:28 Random Glucose 80 mg/dL (65-105) 08/02/18 07:34 Calcium 9.1 mg/dl (8.6-10.4) 08/02/18 07:34 Phosphorus 4.3 mg/dL (2.5-4.5) 08/02/18 07:34 Magnesium 1.9 mg/dL (1.6-2.3) 08/02/18 07:34 Total Bilirubin 0.3 mg/dL (0.2-1.3) 08/02/18 07:34 AST 31 U/L (14-36) 08/02/18 07:34 ALT 20 U/L (9-52) 08/02/18 07:34 Alkaline Phosphatase 85 U/L (38-126) 08/02/18 07:34 Total Creatine Kinase 76 U/L (30-135) 08/01/18 22:50 CK-MB (Mass) < 0.22 ng/mL (0.0-3.38) 08/01/18 22:50 Troponin I < 0.0120 ng/mL (0.00-0.120) 08/01/18 22:50 NT-Pro-B Natriuret Pep 39.6 pg/mL (0-900) 08/01/18 16:22 Total Protein 6.8 g/dL (6.3-8.3) 08/02/18 07:34 Albumin 3.8 g/dL (3.5-5.0) 08/02/18 07:34 Globulin 3.0 gm/dL (2.2-3.9) 08/02/18 07:34 Albumin/Globulin Ratio 1.3 (1.0-2.1) 08/02/18 07:34 Free T4 0.74 ng/dL (0.78-2.19) L 08/01/18 19:14 TSH 3rd Generation 0.48 mIU/L (0.46-4.68) 08/01/18 16:42 FSH 3rd Generation 131.0 mIU/mL 08/02/18 07:34 Urine Opiates Screen Negative (NEGATIVE) 08/01/18 22:08 Urine Methadone Screen Negative (NEGATIVE) 08/01/18 22:08 Ur Barbiturates Screen Negative (NEGATIVE) 08/01/18 22:08 Ur Phencyclidine Scrn Negative (NEGATIVE) 08/01/18 22:08 Ur Amphetamines Screen Negative (NEGATIVE) 08/01/18 22:08 U Benzodiazepines Scrn Negative (NEGATIVE) 08/01/18 22:08 U Oth Cocaine Metabols Negative (NEGATIVE) 08/01/18 22:08 U Cannabinoids Screen Negative (NEGATIVE) 08/01/18 22:08 Alcohol, Quantitative < 10 mg/dl (0-10) 08/01/18 16:42 Attending/Attestation - Attestation I have personally seen and examined this patient.: Yes I have fully participated in the care of the patient.: Yes I have reviewed all pertinent clinical information, including history, physical exam and plan: Yes Notes (Text): This is late computer entry for 08/02/18. Patient seen, examined and case discussed with day-time resident. patient seen this morning. Patient seen at bedside. Clinically well hydrated. She reports she is feeling better. She is very happy to receive vitamins supplemented in her IV fluids. She reports at home, she cannot sleep at night because she gets up to the bathroom to go and pee because she drinks water at night. I did advised her that she needs to hydrate during the day as opposed to at night because she is getting interrupted sleep and not resting at night. She was unaware that her timing is affecting her ability to sleep well at night. Patient reports headache at bedside but reports she has not tried Motrin/Tylenol in the past; wants to be natural; we did complete CT head which is normal and given tylenol which has helped her headache resolved. She was also advised to stop taking the potassium supplement which she read up online because if the p otassium is too high it can cause deadly heart arrhythmias. Patient denies anxiety and reports she is well adjusted person, was seen and evaluated by psych. I have spoken with cardiology as well; recommends beta-zaira. Patient on discharge recommended to continue aspirin 81mg once a day and Toprol XL 12.5mg once a day. Patient recommended to follow-up in the [facility]. Patient also advised to hydrate and to follow-up with PMD prior to initiating supplements. This is a brief summary of patient's hospitalization. Please refer to EMR for full detail of record. Discharge Diagnoses: 1. History of Paroxysmal Atrial fibrillation--Chronic Palpitations (resolved) Assessment/Plan * observation on telemetry * Cardiology station superintendent-->case discussed recommended beta-zaira in addition to aspirin * Patient was seen by Dr. Elena at the [facility] on 07/15/18 when calculated CHADSVASC was 1, and anticoagulation was not start ed at that time. * EKG: Normal Sinus Rhythm at 100bpm * CXR: no active disease * ECHO 07/09/18: normal LV function and EF. no regional wall motion abnormalities, aortic and mitral valves normal in structure and function. * D-dimer not elevated * Pro BNP not elevated * Alcohol negative * UDS negative * CHADSVASC score of 1, correlate to anticoagulation with aspirin * HASBLED score of 1, correlating with low risk for major bleeding * continue home ASA 81mg PO daily * Check if related for post menopausal symptoms, underlying anxiety, patient appears dehydrated at bedside 2. Dehydration (resolved) Assessment/Plan * improved post IV fluids 3. Anxiety Assessment/Plan * patient denies acute psychosocial stressors at bedside but appears worn and tired. 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 PPX: Assessment/Plan * GI PPx: none * DVT PPx: SCDs, heparin 5000 units [id number] * Heart Healthy Diet
[2018-08-02 07:44] VITALS: RESP 20
[2018-08-02 07:48] LABS: BASO % 0.6 % (0.0-2.0); EOS # 0.1 K/uL (0.0-0.7); EOS % 2.3 % (0.0-4.0); HEMOGLOBIN 11.9 g/dL (11.0-16.0); LYMPH # 1.7 K/uL (1.0-4.3); LYMPH % 35.5 % (20.0-40.0); MEAN CELL VOLUME 91.9 fL (81.0-99.0); MEAN CORPUSCULAR HEMOGLOBIN 30.8 pg (27.0-31.0); MEAN CORPUSCULAR HGB CONC 33.5 g/dL (33.0-37.0); MEAN PLATELET VOLUME 11.5 fL (7.2-11.7); MONO # 0.6 K/uL (0.0-0.8); MONO % 11.2 % (0.0-10.0); NEUT # 2.5 K/uL (1.8-7.0); NEUT % 50.4 % (50.0-75.0); NRBC % 0.1 % (0.0-2.0); RBC 3.87 Mil/uL (3.80-5.20); RED CELL DISTRIBUTION WIDTH 13.3 % (11.5-14.5); WHITE BLOOD COUNT 4.9 K/uL (4.8-10.8)
--- NOTE | 2018-08-02 08:12 | CP.PCM.CON ---
History of Present Illness - History of Present Illness History of Present Illness: Vince Estrada PGY1 Cardio consult for Dr Brown Pt is a 65 yo female with a PMH of atrial fibrillation taking ASA and GERD who is a poor historian. Pt reports a 1 year history of blurry vision, dizziness, lightheadedness, and feeling "wobbley". Pt states she has been feeling her heart racing and feel tachycardic. Pt states she almost "passed out" while driving. Pt reports sharp burning chest pain. Pt reports a history of nausea upon awakening. A 12 point ROS was obtained and added to the HPI where appropriate. Past Patient History - Infectious Disease Hx of Infectious Diseases: None - Past Medical History & Family History Past Medical History?: Yes - Past Social History Smoking Status: Never Smoked - CARDIAC Hx Atrial Fibrillation: Yes - MUSCULOSKELETAL/RHEUMATOLOGICAL Hx Falls: No - GASTROINTESTINAL Hx Gastroesophageal Reflux: Yes - PSYCHIATRIC Hx Substance Use: No - SURGICAL HISTORY Hx Surgeries: Yes Other/Comment: OVARIAN CYST REMOVAL - ANESTHESIA Hx Anesthesia: Yes Hx Anesthesia Reactions: No Hx Malignant Hyperthermia: No Meds Home Medications: Home Medication List Medication Instructions Recorded Confirmed Type Metoprolol Succinate XL [Toprol XL] 12.5 mg PO DAILY #14 tab 08/02/18 Rx Allergies/Adverse Reactions: Allergies Allergy/AdvReac Type Severity Reaction Status Date / Time DUST Allergy Mild Uncoded 08/01/18 12:34 POLLEN Allergy Mild Uncoded 08/01/18 12:34 - Medications Medications: Current Medications Aspirin (Aspirin Chewable) 81 mg PO DAILY [facility] Enoxaparin Sodium (Lovenox) 40 mg SC DAILY [facility] Heparin Sodium (Porcine) (Heparin) 5,000 units SC Q12 [facility] Folic Acid 1 mg/ Multivitamins /Vitamin C 10 ml/ Thiamine HCl 100 mg/ Sodium Chloride 1,011.2 mls @ 100 mls/hr IV DAILY [facility] Last Admin: 08/01/18 21:50 Dose: 100 mls/hr Pantoprazole Sodium (Protonix Ec Tab) 40 mg PO DAILY [facility] Physical Exam - Constitutional Appears: No Acute Distress - Head Exam Head Exam: ATRAUMATIC, NORMOCEPHALIC - Eye Exam Eye Exam: EOMI - ENT Exam ENT Exam: Mucous Membranes Moist - Neck Exam Neck exam: Positive for: Full Rom - Respiratory Exam Respiratory Exam: Clear to Auscultation Bilateral, NORMAL BREATHING PATTERN. absent: Accessory Muscle Use, Wheezes, Respiratory Distress - Cardiovascular Exam Cardiovascular Exam: RRR, +S1, +S2. absent: Diastolic murmur, Systolic Murmur - GI/Abdominal Exam GI & Abdominal Exam: Normal Bowel Sounds. absent: Tenderness - Extremities Exam Extremities exam: Positive for: full ROM, pedal pulses present. Negative for: calf tenderness, pedal edema - Neurological Exam Neurological exam: Alert, Normal Gait, Oriented x3 - Psychiatric Exam Psychiatric exam: Normal Affect, Normal Mood - Skin Skin Exam: Dry, Intact Results - Vital Signs Recent Vital Signs: Last Vital Signs Temp 98.4 F 08/02/18 07:00 Pulse 77 08/02/18 07:00 Resp 20 08/02/18 07:00 BP 110/71 08/02/18 07:00 Pulse Ox 97 08/02/18 07:00 - Labs Result Diagrams: 08/02/18 07:34 08/02/18 07:34 Labs: Laboratory Results - last 24 hr 08/01/18 08/01/18 08/01/18 12:28 13:38 13:38 WBC 5.6 RBC 4.06 Hgb 12.5 Hct 37.4 MCV 92.2 MCH 30.8 MCHC 33.4 RDW 13.2 Plt Count 189 MPV 11.6 Neut % (Auto) 65.3 Lymph % (Auto) 22.9 [place] % (Auto) 10.0 Eos % (Auto) 1.3 Baso % (Auto) 0.5 Neut # (Auto) 3.7 Lymph # (Auto) 1.3 [place] # (Auto) 0.6 Eos # (Auto) 0.1 Baso # (Auto) 0.0 PT 13.3 H INR 1.2 APTT 35 H D-Dimer, Quantitative Sodium Potassium Chloride Carbon Dioxide Anion Gap BUN Creatinine Est GFR ( Amer) Est GFR (Non-Af Amer) POC Glucose (mg/dL) 125 H Random Glucose Calcium Total Bilirubin AST ALT Alkaline Phosphatase Total Creatine Kinase CK-MB (Mass) Troponin I NT-Pro-B Natriuret Pep Total Protein Albumin Globulin Albumin/Globulin Ratio Free T4 TSH 3rd Generation Urine Opiates Screen Urine Methadone Screen Ur Barbiturates Screen Ur Phencyclidine Scrn Ur Amphetamines Screen U Benzodiazepines Scrn U Oth Cocaine Metabols U Cannabinoids Screen Alcohol, Quantitative 08/01/18 08/01/18 08/01/18 13:38 16:22 16:22 WBC RBC Hgb Hct MCV MCH MCHC RDW Plt Count MPV Neut % (Auto) Lymph % (Auto) [place] % (Auto) Eos % (Auto) Baso % (Auto) Neut # (Auto) Lymph # (Auto) [place] # (Auto) Eos # (Auto) Baso # (Auto) PT INR APTT D-Dimer, Quantitative < 200 Sodium 142 Potassium 4.7 Chloride 104 Carbon Dioxide 31 H Anion Gap 12 BUN 10 Creatinine 0.9 Est GFR ( Amer) > 60 Est GFR (Non-Af Amer) > 60 POC Glucose (mg/dL) Random Glucose 83 Calcium 9.5 Total Bilirubin 0.2 AST 33 ALT 21 Alkaline Phosphatase 92 Total Creatine Kinase 81 CK-MB (Mass) < 0.22 Troponin I < 0.0120 NT-Pro-B Natriuret Pep 39.6 Total Protein 7.6 Albumin 4.3 Globulin 3.3 Albumin/Globulin Ratio 1.3 Free T4 TSH 3rd Generation Urine Opiates Screen Urine Methadone Screen Ur Barbiturates Screen Ur Phencyclidine Scrn Ur Amphetamines Screen U Benzodiazepines Scrn U Oth Cocaine Metabols U Cannabinoids Screen Alcohol, Quantitative 08/01/18 08/01/18 08/01/18 16:42 16:42 19:14 WBC RBC Hgb Hct MCV MCH MCHC RDW Plt Count MPV Neut % (Auto) Lymph % (Auto) [place] % (Auto) Eos % (Auto) Baso % (Auto) Neut # (Auto) Lymph # (Auto) [place] # (Auto) Eos # (Auto) Baso # (Auto) PT INR APTT D-Dimer, Quantitative Sodium Potassium Chloride Carbon Dioxide Anion Gap BUN Creatinine Est GFR ( Amer) Est GFR (Non-Af Amer) POC Glucose (mg/dL) Random Glucose Calcium Total Bilirubin AST ALT Alkaline Phosphatase Total Creatine Kinase 91 CK-MB (Mass) < 0.22 Troponin I < 0.0120 NT-Pro-B Natriuret Pep Total Protein Albumin Globulin Albumin/Globulin Ratio Free T4 0.74 L TSH 3rd Generation 0.48 Urine Opiates Screen Urine Methadone Screen Ur Barbiturates Screen Ur Phencyclidine Scrn Ur Amphetamines Screen U Benzodiazepines Scrn U Oth Cocaine Metabols U Cannabinoids Screen Alcohol, Quantitative < 10 08/01/18 08/01/18 08/02/18 22:08 22:50 07:34 WBC 4.9 RBC 3.87 Hgb 11.9 Hct 35.6 MCV 91.9 MCH 30.8 MCHC 33.5 RDW 13.3 Plt Count 172 MPV 11.5 Neut % (Auto) 50.4 Lymph % (Auto) 35.5 [place] % (Auto) 11.2 H Eos % (Auto) 2.3 Baso % (Auto) 0.6 Neut # (Auto) 2.5 Lymph # (Auto) 1.7 [place] # (Auto) 0.6 Eos # (Auto) 0.1 Baso # (Auto) 0.0 PT INR APTT D-Dimer, Quantitative Sodium Potassium Chloride Carbon Dioxide Anion Gap BUN Creatinine Est GFR ( Amer) Est GFR (Non-Af Amer) POC Glucose (mg/dL) Random Glucose Calcium Total Bilirubin AST ALT Alkaline Phosphatase Total Creatine Kinase 76 CK-MB (Mass) < 0.22 Troponin I < 0.0120 NT-Pro-B Natriuret Pep Total Protein Albumin Globulin Albumin/Globulin Ratio Free T4 TSH 3rd Generation Urine Opiates Screen Negative Urine Methadone Screen Negative Ur Barbiturates Screen Negative Ur Phencyclidine Scrn Negative Ur Amphetamines Screen Negative U Benzodiazepines Scrn Negative U Oth Cocaine Metabols Negative U Cannabinoids Screen Negative Alcohol, Quantitative Assessment & Plan - Assessment and Plan (Free Text) Assessment: Chest Pain Pre syncope Atrial fibrillation Anxiety Plan: Chest pain, rule out ACS INR 1.2 Trop negative x3 EKG- RRR, no ST or T wave abnormalities Medications ASA lovenox Add Toprol XL Pt seen, examined, assessment and plan discussed with Dr Kevin Estrada PGY1, Internal Medicine Resident - Date & Time Date: 08/02/18 Time: 07:00
[2018-08-02 08:57] LABS: ALB/GLOB RATIO 1.3 (1.0-2.1); ALBUMIN 3.8 g/dL (3.5-5.0)
[2018-08-02 09:10] LABS: ALT/SGPT 20 U/L (9-52); AST/SGOT 31 U/L (14-36); BLOOD UREA NITROGEN 11 mg/dL (7-17); CALCIUM 9.1 mg/dl (8.6-10.4); GFR NON-AFRICAN AMERICAN > 60
--- NOTE | 2018-08-02 09:27 | PCM.PSYCH ---
Initial Psychiatric Evaluation - Initial Psychiatric Evaluation Type of Admission: Voluntary Legal Status: Capacity History of Present Illness and Precipitating Events: Patient is a 52 year old female with past medical history of A.fib and GERD presenting to ED with headaches and palpitations since one month, and has been feeling lightheaded and dizzy for 3 days. She reports taking ASA 81x4 today and a potassium OTC pill. Patient says the paoin was worse with activity and is better now that shes laying down. Current Medications: Active Medications Generic Name Dose Route Start Last Admin Trade Name Leonides PRN Reason Stop Dose Admin Aspirin 81 mg 08/02/18 10:00 Aspirin Chewable PO DAILY [facility] Enoxaparin Sodium 40 mg 08/02/18 10:00 Lovenox SC DAILY [facility] Heparin Sodium (Porcine) 5,000 units 08/01/18 22:00 Heparin SC Q12 [facility] Folic Acid 1 mg/ Multivitamins 1,011.2 mls @ 100 mls/hr 08/01/18 20:00 08/01/18 21:50 /Vitamin C 10 ml/ Thiamine HCl IV 100 mls/hr 100 mg/ Sodium Chloride DAILY [facility] Administration Pantoprazole Sodium 40 mg 08/02/18 10:00 Protonix Ec Tab PO DAILY [facility] Past Psychiatric History - Past Psychiatric History Pertinent Medical Hx (Current Medical&Sleep Prob, Allergies): Allergies Allergy/AdvReac Type Severity Reaction Status Date / Time DUST Allergy Mild Uncoded 08/01/18 12:34 POLLEN Allergy Mild Uncoded 08/01/18 12:34 Aspirin [Aspirin Chewable] 81 mg PO DAILY #30 chew 07/10/18
[2018-08-02] MEDS: Folic Acid 1 MG, Multivitamin (MVI) 10 ML, Thiamine 100 MG in Sodium Chloride 0.9% 1,00... IV SCH (09:37)
[2018-08-02] MEDS ORDERED: Enoxaparin 40 mg Syringe SC SCH (10:00)
[2018-08-02] MEDS ORDERED: Pantoprazole 40 mg EC Tab PO SCH (10:00)
--- NOTE | 2018-08-02 11:04 | CARD ---
APPROVED REPORT Date of service: 08/01/2018 EKG Measurement Heart [id number] <Conclusion> Normal sinus rhythm Septal infarct, age undetermined Abnormal ECG
--- NOTE | 2018-08-02 11:28 | CT ---
Date of service: 2018-08-02 10:58:16 PROCEDURE: CT HEAD WITHOUT CONTRAST. HISTORY: Dizziness COMPARISON: None available. TECHNIQUE: Axial computed tomography images were obtained through the head/brain without intravenous contrast. Radiation dose: Total exam DLP = 1051.9 mGy-cm. This CT exam was performed using one or more of the following dose reduction techniques: Automated exposure control, adjustment of the mA and/or kV according to patient size, and/or use of iterative reconstruction technique. FINDINGS: HEMORRHAGE: No intracranial hemorrhage. BRAIN: No mass effect or edema. No atrophy or chronic microvascular ischemic changes.Vascular calcifications both carotid siphons. VENTRICLES: No obstructive hydrocephalus. There appears to be a small cavum septum pellucidum. CALVARIUM: Unremarkable. PARANASAL SINUSES: Sinuses are slightly underpneumatized. Minimal mucosal thickening within the ethmoid and right chamber sphenoid sinus. MASTOID AIR CELLS: Unremarkable as visualized. No inflammatory changes. OTHER FINDINGS: None. IMPRESSION: No acute intracranial hemorrhage.
[2018-08-02 15:51] VITALS: BP 144/83; PULSE 91; TEMP 97.8; O2SAT 98
[2018-08-03] MEDS ORDERED: Metoprolol Succinate 12.5 mg XL Tab PO SCH (10:00)
--- NOTE | 2018-08-04 00:08 | CARD ---
APPROVED REPORT Date of service: 08/02/2018 EKG Measurement Heart [id number] <Conclusion> Normal sinus rhythm Septal infarct, age undetermined Abnormal ECG
--- NOTE | 2018-08-05 10:28 | VASCLAB ---
Date of service: 08/02/2018 PROCEDURE: Carotid Duplex Exam. HISTORY: headaches, hx of afib COMPARISON: None available. TECHNIQUE: Grayscale and duplex Doppler evaluation of the cervical carotid and vertebral arteries were performed. The common carotid, carotid bifurcations and cervical Internal Carotid Artery (ICA) and proximal External Carotid Artery (ECA) were evaluated. The vertebral arteries were evaluated for gross patency and flow direction. Report prepared by Julian Orozco, BS, RVT FINDINGS: RIGHT CAROTID ARTERIES: 1. Common Carotid Artery: No significant focal plaque formation of the right common carotid artery. Maximum Peak Systolic velocity: 117 cm/sec: End-diastolic velocity 37 cm/sec. 2. Carotid Bifurcation: plaque formation. Maximum Peak Systolic velocity: 102 cm/sec: End-diastolic velocity 21 cm/sec. 3. Internal Carotid Artery: Plaque description: 3.1. Proximal Segment: Peak systolic velocity 96 cm/sec: End-diastolic velocity 35 cm/sec - % stenosis 0-15% 3.2. Middle Segment: Peak systolic velocity 52 cm/sec: End-diastolic velocity 22 cm/sec - % stenosis 0-15% 3.3. Distal Segment: Peak systolic velocity 76 cm/sec: End-diastolic velocity 34 cm/sec - % stenosis 0-15% 4. External Carotid Artery: No significant focal plaque formation. Peak systolic velocity 102 cm/sec 5. ICA/CCA Ratio: 0.9 LEFT CAROTID ARTERIES: 1. Common Carotid Artery: No significant focal plaque formation of the left common carotid artery. Maximum Peak Systolic velocity: 101 cm/sec: End-diastolic velocity 35 cm/sec. 2. Carotid Bifurcation: plaque formation. Maximum Peak Systolic velocity: 104 cm/sec: End-diastolic velocity 36 cm/sec. 3. Internal Carotid Artery: Plaque description: 3.1. Proximal Segment: Peak systolic velocity 117 cm/sec: End-diastolic velocity 35 cm/sec - % stenosis 0-15% 3.2. Middle Segment: Peak systolic velocity 77 cm/sec: End-diastolic velocity 35 cm/sec - % stenosis 0-15% 3.3. Distal Segment: Peak systolic velocity 58 cm/sec: End-diastolic velocity 25 cm/sec - % stenosis 0-15% 4. External Carotid Artery: No significant focal plaque formation. Peak systolic velocity 90 cm/sec 5. ICA/CCA Ratio: 1.2 VERTEBRAL ARTERIES: 1. Right Vertebral Artery: The right vertebral artery flow direction is antegrade. 2. Left Vertebral Artery: The left vertebral artery flow direction is antegrade. OTHER FINDINGS: 1. Right Brachial Blood pressure: 126 mmHg. 2. Left Brachial Blood pressure: 122 mmHg. 3. No atherosclerotic calcification present IMPRESSION: RIGHT: Duplex scan does not suggest hemodynamically significant stenosis of the right extracranial carotid arteries. LEFT: Duplex scan does not suggest hemodynamically significant stenosis of the left extracranial carotid arteries.
--- NOTE | 2018-08-07 00:07 | CARD ---
APPROVED REPORT Date of service: 08/01/2018 EKG Measurement Heart [id number] <Conclusion> Normal sinus rhythm Septal infarct, age undetermined Abnormal ECG
== END 2018-08-02 16:28 | disposition home or self-care (01) ==
LOC: C.ER 12:13 → C.9E 16:07 → C.5S 16:43
PROVIDERS: ADMIT Hospitalist; ATTEND Hospitalist
DX: I48.0 Paroxysmal atrial fibrillation (principal); E86.0 Dehydration; F41.9 Anxiety disorder, unspecified; Z79.82 Long term (current) use of aspirin; K21.9 Gastro-esophageal reflux disease without esophagitis
CPT/HCPCS: 36415; 70450; 71045; 80053; 80320; 80324; 80345; 80346; 80349; 80353; 80358; 80361; 82550; 82553; 82948; 83001; 83735; 83880; 83992; 84100; 84439; 84443; 84484; 85025; 85378; 85610; 85730; 93005; 93880; 96372; 96374; 96376; 99285; G0378; J1650; J3411; J7030